=== PATIENT | male | born 1955 | race African-American/Black ===

== ENCOUNTER 2019-01-10 07:54 | Inpatient (IN) | payer MEDICARE, MEDICAID ==
[~2019-01-10] VITALS: Ht 177.8 cm; Wt 59.9 kg
[2019-01-10] VITALS (28 sets, daily range): BP systolic 73–161; BP diastolic 39–92
[~2019-01-10 07:54] MED LIST: ACETYLCYST200 MG/1 M ORAL; ARGINAID POWDE1 EACH PO; COLACE100 MG/10 PO; EPOGEN10000 UNIT SUBQ; FAMOTIDINE20 MG ORAL; HEPARIN SO5000 UNIT2 SUBQ; NEPHROVITE1 TAB ORAL; NOVOLIN R100 UNIT/1 SUBQ; PANTOPRAZOLE SO40 MG ORAL; PRO STAT SUGAR FREE PO; SIMETHICONE80 MG ORAL
[2019-01-10 08:46] LABS: HEMOGLOBIN 12.7 G/DL (14.2-18.0); MEAN CORPUSCULAR VOLUME 93 FL (80-99); PLATELET COUNT 78 K/UL (150-450); RED BLOOD COUNT 4.61 M/UL (4.70-6.10); RED CELL DISTRIBUTION WIDTH 20.1 % (11.6-14.8); WHITE BLOOD COUNT 6.1 K/UL (4.8-10.8)
[2019-01-10 08:56] LABS: INR 1.3 (0.9-1.1)
[2019-01-10 09:03] LABS: ANION GAP 10 mmol/L (5-15); BLOOD UREA NITROGEN 25 mg/dL (7-18); CALCIUM 8.7 MG/DL (8.5-10.1); CARBON DIOXIDE 22 MMOL/L (21-32); CHLORIDE 104 MMOL/L (98-107); CREATININE 3.5 MG/DL (0.55-1.30); POTASSIUM 4.4 MMOL/L (3.5-5.1); SODIUM 136 MMOL/L (136-145)
[2019-01-10] MEDS ORDERED: Lidocaine 1% Plain 30 ml INJ ONE (09:22)
[2019-01-10] MEDS ORDERED: Bacitracin Oint 15gm Tube TOPIC ONE (09:22)
[2019-01-10] MEDS ORDERED: Heparin 1000 units/ml 1ml Vial ONE (09:22)
[2019-01-10] MEDS ORDERED: Bacitracin 50000 Units Vial ONE (09:22)
[2019-01-10] MEDS ORDERED: Bupivacaine 0.5% Inj 30 ml vial INJ ONE (09:22)
[2019-01-10] MEDS ORDERED: Heparin 5000 units/ml inj ONE (09:38)
[2019-01-10] MEDS ORDERED: NS Irrig 1000ml IRRIG ONE (10:29)
[2019-01-10] MEDS ORDERED: LR 1000ml 1,000 ML IVLG SCH (10:39)
[2019-01-10] MEDS ORDERED: Sodium Chloride 10ml vial INJ ONE (10:39)
[2019-01-10] MEDS ORDERED: Lidocaine 1% MPF 10mg/ml 5ml ONE (10:39)
--- NOTE | 2019-01-10 10:39 | Anethesia Preoperative Eval ---
Anesthesia Pre-op PMH/ROS General Date of Evaluation: Jan 10, 2019 Time of Evaluation: 11:01 Anesthesiologist: Mary Lou ASA Score: ASA 4 Mallampati Score Class I : Soft palate, uvula, fauces, pillars visible Class II: Soft palate, uvula, fauces visible Class III: Soft palate, base of uvula visible Class IV: Only hard plate visible Mallampati Classification: Class III Surgeon: Mario Diagnosis: ESRD Surgical Procedure: A/V Fistula L Arm Anesthesia History: none Social History: smoking Family History: no anesthesia problems Allergies: Coded Allergies: No Known Allergies (Unverified , 01/09/19) Medications: see eMAR Patient NPO?: Yes Past Medical History Cardiovascular: Reports: HTN Pulmonary: Reports: COPD Gastrointestinal/Genitourinary: Reports: ESRD Endocrine: Reports: DM Hematology/Immune: Reports: anemia Anesthesia Pre-op Phys. Exam Physician Exam Last Vital Signs Date Time Temp Pulse Resp B/P (MAP) Pulse Ox O2 Delivery O2 Flow Rate FiO2 01/10/19 08:45 Room Air 01/10/19 08:40 97.0 71 20 141/75 97 Constitutional: NAD Neurologic: CN 2-12 intact Cardiovascular: RRR Respiratory: CTA Gastrointestinal: S/NT/ND Airway Exam Mallampati Score: Class III MO: limited ROM: limited Teeth: missing Dentures: upper, lower Anesthesia Pre-op A/P Labs Hematology Test 01/10/19 08:35 White Blood Count 6.1 K/UL (4.8-10.8) Red Blood Count 4.61 M/UL (4.70-6.10) L Hemoglobin 12.7 G/DL (14.2-18.0) L Hematocrit 43.0 % (42.0-52.0) Mean Corpuscular Volume 93 FL (80-99) Mean Corpuscular Hemoglobin 27.6 PG (27.0-31.0) Mean Corpuscular Hemoglobin Concent 29.6 G/DL (32.0-36.0) L Red Cell Distribution Width 20.1 % (11.6-14.8) H Platelet Count 78 K/UL (150-450) L Mean Platelet Volume 6.7 FL (6.5-10.1) Neutrophils (%) (Auto) % (45.0-75.0) Lymphocytes (%) (Auto) % (20.0-45.0) Monocytes (%) (Auto) % (1.0-10.0) Eosinophils (%) (Auto) % (0.0-3.0) Basophils (%) (Auto) % (0.0-2.0) Differential Total Cells Counted 100 Neutrophils % (Manual) 57 % (45-75) Lymphocytes % (Manual) 34 % (20-45) Monocytes % (Manual) 9 % (1-10) Eosinophils % (Manual) 0 % (0-3) Basophils % (Manual) 0 % (0-2) Band Neutrophils 0 % (0-8) Platelet Estimate Decreased L Platelet Morphology Normal Anisocytosis 2+ Coagulation Test 01/10/19 08:35 Prothrombin Time 13.8 SEC (9.30-11.50) H Prothromb Time International Ratio 1.3 (0.9-1.1) H Activated Partial Thromboplast Time 39 SEC (23-33) H Chemistry Test 01/10/19 08:35 Sodium Level 136 MMOL/L (136-145) Potassium Level 4.4 MMOL/L (3.5-5.1) Chloride Level 104 MMOL/L (98-107) Carbon Dioxide Level 22 MMOL/L (21-32) Anion Gap 10 mmol/L (5-15) Blood Urea Nitrogen 25 mg/dL (7-18) H Creatinine 3.5 MG/DL (0.55-1.30) H Estimat Glomerular Filtration Rate 21.5 mL/min (>60) Glucose Level 81 MG/DL (74-106) Calcium Level 8.7 MG/DL (8.5-10.1) Studies Pre-op Studies: EKG - A Flutter Risk Assessment & Plan Assessment: ASA 4 Plan: GA, SED Status Change Before Surgery: No Pre-Antibiotics Dru Gram Ancef IV Given Within 1 Hr of Incision: Yes Time Given: 11:16 Bora Barreto MD Jan 10, 2019 10:39
[2019-01-10] MEDS ORDERED: Propofol 200mg/20ml IV ONE (10:40)
[2019-01-10] MEDS ORDERED: Alfentanil 2ml Inj ONE (10:40)
[2019-01-10] MEDS ORDERED: Hydromorphone 0.5mg/0.5ml inj IVP PRN (10:45)
[2019-01-10] MEDS ORDERED: oxyCODONE HCL/Acetaminophen 5/325mg ORAL PRN (10:45)
[2019-01-10] MEDS ORDERED: HYDROcodone/Acetamin 7.5/325 tab ORAL PRN (10:45)
[2019-01-10] MEDS ORDERED: Metoclopramide 10mg/2ml Inj IVP PRN (10:45)
[2019-01-10] MEDS ORDERED: HYDROcodone/Acetamin 5/325 tab ORAL PRN (10:45)
[2019-01-10] MEDS ORDERED: Ketorolac 30mg Inj IV PRN ×2 (10:45)
[2019-01-10] MEDS ORDERED: Meperidine 50mg/ml Inj(FOR RIGORS ONLY) IVP PRN (10:45)
[2019-01-10] MEDS ORDERED: DiphenhydrAMINE 50mg/ml Inj IVP PRN (10:45)
[2019-01-10] MEDS ORDERED: Labetalol 5mg/ml 20ml vial IV PRN (10:45)
[2019-01-10] MEDS ORDERED: Midazolam 2mg/2ml Inj IVP PRN (10:45)
[2019-01-10] MEDS ORDERED: LORazepam Inj 2mg/ml 1ml IV PRN (10:45)
[2019-01-10] MEDS ORDERED: fentaNYL 100 mcg/2 mL IV PRN (10:45)
[2019-01-10] MEDS ORDERED: Atropine Sulfate 0.4mg/ml inj IVP PRN (10:45)
[2019-01-10] MEDS ORDERED: LR 1000ml ONE (11:00)
[2019-01-10] MEDS ORDERED: Glycopyrrolate 0.2mg/ml 1ml Vial ONE (11:23)
[2019-01-10] MEDS ORDERED: Atropine Sulfate 0.4mg/ml inj ONE ×6 (11:26→13:02)
[2019-01-10] MEDS ORDERED: EPINEPHrine 1mg/1ml Amp ONE (11:33)
--- NOTE | 2019-01-10 11:44 | Pre-Procedure Note/Attestation ---
Pre-Procedure Note/Attestation Complete Prior to Procedure Planned Procedure: left Procedure Narrative: dialysis shunt placement; possible dialysis catheter replacement Indications for Procedure Pre-Operative Diagnosis: ESRD Attestation I attest that I discussed the nature of the procedure; its benefits; risks and complications; and alternatives (and the risks and benefits of such alternatives ), prior to the procedure, with the patient (or the patient's legal technical support representative). I attest that, if there was a reasonable possibility of needing a blood transfusion, the patient (or the patient's legal technical support representative) was given the [facility] standardized written summary, pursuant to the Bimal Sravanthi Blood Safety Act ([place] Health and Safety Code # 1645, as amended). I attest that I re-evaluated the patient just prior to the surgery and that there has been no change in the patient's H&P, except as documented below: Hany Martin MD Jan 10, 2019 11:44
--- NOTE | 2019-01-10 12:02 | Immediate Post-Op Evaluation ---
Immediate Post-Op Evalulation Immediate Post-Op Evalulation Procedure: A/V Fistula L Arm Date of Evaluation: Jan 10, 2019 Time of Evaluation: 13:39 IV Fluids: 1000 NS Blood Products: 0 Estimated Blood Loss: 10 Urinary Output: 0 Blood Pressure Systolic: 220 Blood Pressure Diastolic: 100 Pulse Rate: 103 - AF Respiratory Rate: 12 - Mech Vent O2 Sat by Pulse Oximetry: 92 Temperature (Fahrenheit): 97 Pain Score (1-10): 1 Nausea: No Vomiting: No Complications Pt had cardiac arrest x3, 30 seconds of chest compressions with 100 mcg of epinephrine, now in ventricular rhythm in ICU Patient Status: patent, none Hydration Status: adequate Dru Gram Ancef IV Given Within 1 Hr of Incision: Yes Time Given: 11:16 Bora Barreto MD Jan 10, 2019 12:02
[2019-01-10] MEDS ORDERED: Flumazenil 0.1mg/ml 5ml Inj IV ONE (12:07)
--- NOTE | 2019-01-10 13:40 | NUR ---
CODE BLUE: See Code sheet which remains on paper. Patient arrived from the OR in full cardiac arrest. CPR was instituted immediately upon the arrival of the OR team and anesthesiologist. No meds were given at that time. Dopamine was hung but not started only ACLS/CPR was started. Patient returned to ROSC. Patient was closely monitored for VS and Respiratory rate. Patient was noted to have pupils that were fixed and dilated with no reaction to light. Patient was not responsive to pain or any other responses. Crash cart continues to be at bedside and patient continues to be closely monitored for this hemodynamically unstable patient. BG taken was 75.
--- NOTE | 2019-01-10 13:51 | Brief Operative Note ---
Immediate Post Operative Note Operative Note Pre-op Diagnosis: ESRD Procedure: left brachiobasilic AVF creation Post-op Diagnosis: same as pre-op Findings: consistent w/pre-op dx studies Surgeon: Yesenia Martin Anesthesiologist: Saniya Barreto Anesthesia: general Specimen: none Complications: yes - see anesthesia record Condition: unstable Fluids: see anesth. record Estimated Blood Loss: minimal Drains: none Implant(s) used?: No Hany Martin MD Jan 10, 2019 13:51
--- NOTE | 2019-01-10 14:15 | NUR ---
NURSE NOTES: Sister of the patient was phoned for the 2nd time. A message was left to phone the [facility] back regarding patient. Did not leave details. 1st phone call was made just shortly after code blue when patient arrived. Will endorse to pm RN to attempt to phone to sister once again,
--- NOTE | 2019-01-10 14:39 | NUR ---
RESPIRATORY NOTE: Arrived in basement floor as pt was being transferred to ICU. Code was in process during transport, but no code was called overhead. Compressions occurred as I provided oxygen to the pt. Pt arrived in ICU with RN's from surgery and from ICU and other RT's in the room at bedside until pt stabilized. Per MD, verbal order of vent settings are AC 12 500 100% +5. received pt intubated with ETT 8, placed 24cm at the lip. ETT secured via anchor fast when pt arrived in ICU. pt currently unstable at this time, HR 97 spo2 100% with low BP. Bilateral rhochi b/s upon auscultation. vent is plugged into the red outlet with ambu bag at bedside. will cont to monitor pt and to follow orders.
--- NOTE | 2019-01-10 15:26 | History and Physical ---
History of Present Illness General Date patient seen: Jan 10, 2019 Present Illness HPI 63 y/o male admitted to icu after having a new av fistula creation c/b cardiac arrest. Pt. has been on dialysis x 4 months with oliguria, seen by PMD Celeste Snyder yesterday at hd which he tolerated well. Currently pt. in icu on pressors, and vent, non responsive to painful stimuli off sedation. case d/w pmd, rn at bedside. Allergies: Coded Allergies: No Known Allergies (Unverified , 01/09/19) Medication History Scheduled Acetylcysteine* (Acetylcysteine*), 200 MG ORAL Q6, (Reported) Arginine/Ascorbate Sod/Ellie AC (Arginaid Powder), 1 EACH PO BID, (Reported) Docusate Sodium (Docusate Sodium), 5 ML PO BID, (Reported) Epoetin Beau (Epogen), 10,000 UNIT SUBQ 3XW, (Reported) Famotidine (Famotidine), 20 MG ORAL DAILY, (Reported) Heparin Sod (Porcine) (Heparin Sodium*), 5,000 UNITS SUBQ EVERY 12 HOURS, ( Reported) Insulin Regular, Human* (Novolin R*), 0 SUBQ .SLIDING SCALE, (Reported) Pantoprazole* (Pantoprazole*), 40 MG ORAL DAILY, (Reported) Vitamin B Cmplx/Vit C/Folic AC (Nephro-Ellie Tablet), 1 TAB ORAL DAILY, (Reported ) [Pro Stat Sugar Free ], 30 ML PO BID, (Reported) Scheduled PRN Simethicone* (Simethicone*), 80 MG ORAL BID PRN for GAS PAIN, (Reported) Patient History History Provided By: Medical Record Healthcare decision maker Resuscitation status Advanced Directive on File Past Medical/Surgical History Past Medical/Surgical History: (1) Anemia (2) DM2 (diabetes mellitus, type 2) (3) Respiratory failure (4) Cardiac arrest (5) ESRD (end stage renal disease) Social History Social History: (1) alf resident Review of Systems ROS Narrative pt comatose, unable to obtain Physical Exam General Appearance: WD/WN, lethargic, thin Lines, tubes and drains: peripheral, endotracheal tube, dialysis access HEENT: normocephalic, atraumatic Neck: non-tender, supple Cardiovascular/Chest: normal peripheral pulses Abdomen: soft, no organomegaly Genitourinary/Rectal: normal genital exam Extremities: no edema Skin Exam: normal pigmentation Neurologic: abnormal CN, motor weakness, sensory deficit, unresponsiveness Last 24 Hour Vital Signs Date Time Temp Pulse Resp B/P (MAP) Pulse Ox O2 Delivery O2 Flow Rate FiO2 01/10/19 15:00 96 12 100 01/10/19 14:25 91 12 100 01/10/19 13:24 103 12 92 01/10/19 08:45 Room Air 01/10/19 08:40 97.0 71 20 141/75 97 Room Air Laboratory Tests Test 01/10/19 08:35 White Blood Count 6.1 K/UL (4.8-10.8) Red Blood Count 4.61 M/UL (4.70-6.10) L Hemoglobin 12.7 G/DL (14.2-18.0) L Hematocrit 43.0 % (42.0-52.0) Mean Corpuscular Volume 93 FL (80-99) Mean Corpuscular Hemoglobin 27.6 PG (27.0-31.0) Mean Corpuscular Hemoglobin Concent 29.6 G/DL (32.0-36.0) L Red Cell Distribution Width 20.1 % (11.6-14.8) H Platelet Count 78 K/UL (150-450) L Mean Platelet Volume 6.7 FL (6.5-10.1) Neutrophils (%) (Auto) % (45.0-75.0) Lymphocytes (%) (Auto) % (20.0-45.0) Monocytes (%) (Auto) % (1.0-10.0) Eosinophils (%) (Auto) % (0.0-3.0) Basophils (%) (Auto) % (0.0-2.0) Differential Total Cells Counted 100 Neutrophils % (Manual) 57 % (45-75) Lymphocytes % (Manual) 34 % (20-45) Monocytes % (Manual) 9 % (1-10) Eosinophils % (Manual) 0 % (0-3) Basophils % (Manual) 0 % (0-2) Band Neutrophils 0 % (0-8) Platelet Estimate Decreased L Platelet Morphology Normal Anisocytosis 2+ Prothrombin Time 13.8 SEC (9.30-11.50) H Prothromb Time International Ratio 1.3 (0.9-1.1) H Activated Partial Thromboplast Time 39 SEC (23-33) H Sodium Level 136 MMOL/L (136-145) Potassium Level 4.4 MMOL/L (3.5-5.1) Chloride Level 104 MMOL/L (98-107) Carbon Dioxide Level 22 MMOL/L (21-32) Anion Gap 10 mmol/L (5-15) Blood Urea Nitrogen 25 mg/dL (7-18) H Creatinine 3.5 MG/DL (0.55-1.30) H Estimat Glomerular Filtration Rate 21.5 mL/min (>60) Glucose Level 81 MG/DL (74-106) Calcium Level 8.7 MG/DL (8.5-10.1) Height (Feet): 5 Height (Inches): 10.00 Weight (Pounds): 150 Medications Current Medications Medications (Trade) Dose Ordered Sig/Elder Route PRN Reason Start Time Stop Time Status Last Admin Dose Admin Acetaminophen/ Hydrocodone Bitart ([place] 5/325) 1 tab Q1H PRN ORAL Mild Pain (Pain Scale 1-3) 01/10/19 10:45 01/10/19 20:00 Acetaminophen/ Hydrocodone Bitart ([place] 7.5/325) 1 tab Q1H PRN ORAL Moderate Pain (Pain Scale 4-6) 01/10/19 10:45 01/10/19 20:00 Al Hydroxide/Mg Hydroxide (Mylanta) 15 ml Q1H PRN ORAL gi upset 01/10/19 10:45 01/10/19 20:00 Atropine Sulfate (Atropine 0.4mg/ ml) 0.5 mg Q5M PRN IVP HR<40 01/10/19 10:45 01/10/19 20:00 Diphenhydramine HCl (Benadryl) 25 mg Q15M PRN IVP Itching 01/10/19 10:45 01/10/19 20:00 Fentanyl Citrate (Sublimaze 100 mcg/2 mL) 25 mcg Q10M PRN IV Moderate Pain (Pain Scale 4-6) 01/10/19 10:45 01/10/19 20:00 Hydralazine HCl (Apresoline) 5 mg Q30M PRN IV SBP>160 / DBP>90 01/10/19 10:45 01/10/19 20:00 Hydromorphone HCl (Dilaudid) 0.5 mg Q15M PRN IVP Severe Pain (Pain Scale 7-10) 01/10/19 10:45 01/10/19 20:00 Ketorolac Tromethamine (Toradol 30mg) 15 mg Q1H PRN IV Moderate Breakthru Pain (5-7) 01/10/19 10:45 01/10/19 20:00 Ketorolac Tromethamine (Toradol 30mg) 30 mg Q1H PRN IV Severe Breakthru Pain (>7) 01/10/19 10:45 01/10/19 20:00 Labetalol HCl (Normodyne) 5 mg Q10M PRN IV SBP>160 / DBP>90 01/10/19 10:45 01/10/19 20:00 Lorazepam (Ativan 2mg/ml 1ml) 1 mg Q15M PRN IV For Anxiety 01/10/19 10:45 01/10/19 20:00 Meperidine HCl (Demerol) 25 mg Q5M PRN IVP Shivering.May repeat x 1 01/10/19 10:45 01/10/19 20:00 Metoclopramide HCl (Reglan) 10 mg Q1H PRN IVP Nausea & Vomiting 01/10/19 10:45 01/10/19 20:00 Midazolam HCl (Versed 2mg/2ml vial) 1 mg Q15M PRN IVP For Anxiety 01/10/19 10:45 01/10/19 20:00 Ondansetron HCl (Zofran) 4 mg Q1H PRN IVP Nausea & Vomiting 01/10/19 10:45 01/10/19 20:00 Oxycodone/ Acetaminophen (Percocet 5-325) 1 tab Q1H PRN ORAL Severe Pain (Pain Scale 7-10) 01/10/19 10:45 01/10/19 20:00 Assessment/Plan Problem List: (1) Cardiac arrest Assessment & Plan: - prognosis poor,will contact family, cont pressors, ivf, will get cards, pulmonary and neuro eval. -prognosis poor ICD Codes: I46.9 - Cardiac arrest, cause unspecified SNOMED: 267140328 (2) Anemia Assessment & Plan: - follow h.h -gi prophylaxis -epogen intermittent with hd ICD Codes: D64.9 - Anemia, unspecified SNOMED: 815997132 (3) Respiratory failure Assessment & Plan: - pulmonary eval pending -abg, cxr -keep on vent, minimize o2 flow ICD Codes: J96.90 - Respiratory failure, unspecified, unspecified whether with hypoxia or hypercapnia SNOMED: 619310916 (4) ESRD (end stage renal disease) Assessment & Plan: -adjust meds to lower crcl -next hd possibly tomorrow if hemodynamically stable -s/p new fistula, access care per vascular ICD Codes: N18.6 - End stage renal disease SNOMED: 92047327 (5) DM2 (diabetes mellitus, type 2) Assessment & Plan: - place on d5ns -follow bs q 6 with sliding scale ICD Codes: E11.9 - Type 2 diabetes mellitus without complications SNOMED: 67286456 Status: deteriorating Giovani Garza M.D. Jan 10, 2019 15:26
[2019-01-10] MEDS ORDERED: D5NS 1,000 ML IV SCH (15:30)
--- NOTE | 2019-01-10 15:30 | NUR ---
NURSE NOTES: Dr Garza is assessing patient bedside. Orders were given. Consults for Dr Faria and Dr Hidalgo were given for patient. Will await for MDs to arrive. Will continue to monitor.
--- NOTE | 2019-01-10 16:22 | Diagnostic Imaging Report ---
APPROVED REPORT CPT Code: G0365 Present Symptoms Comments: Vein mapping (Pre Op) Vein Measurements(cm) Cephalic Basilic Right LeftRight Left 0.25Upper Arm0.18Mid Upper Arm0.30 0.13Mid Upper ArmAntecubital Fossa0.28 VEIN MAPPING: The right and left cephalic and left basilic veins were imaged and measured to evaluate as a potential graft for dialysis access. BILATERAL UPPER EXTREMITY: Imaging reveals patency of the internal jugular, subclavian, axillary and brachial veins. Doppler indicates normal spontaneous flow within these venous segments, bilaterally. RIGHT UPPER EXTREMITY: The right subclavian, axillary, and brachial arteries Doppler waveforms are multiphasic. The radial and ulnar Doppler waveform analysis is biphasic with low amplitude flow. LEFT UPPER EXTREMITY: The left subclavian, axillary, brachial, radial and ulnar arteries Doppler waveforms are within normal limits.
--- NOTE | 2019-01-10 17:30 | NUR ---
NURSE NOTES: received this pt from [facility]. Received pt unresponsive, pupils fixed and dilated 5mm. pt cold touch and pale. pt intubated with ETT 8, placed 27 cm @ the lip. pt currently unstable at this time, HR 59, BP 78/37, RR 11, spo2 100%. Bilateral rhonchi. Abdomen distended, pt incontinent of stool. brown with green specks and red color, with large adult diaper on. New AVshunt LT arm, bright red blood, soaking through operative dressing. RT upper chest HD access with pigtail, RT IV 22G. will cont to monitor pt and to follow orders.
--- NOTE | 2019-01-10 17:36 | Pulmonolgy Critical Care Note ---
Critical Care - Asmt/Plan Assessment/Plan: Pulmonary CCM Consultation HPI Patient is a 63 y/o male admitted to icu after having a new av fistula creation c/b cardiac arrest x 2. Pt. has been on dialysis x 4 months with oliguria. Currently pt. in icu on pressors, and vent, non responsive to painful stimuli off sedation. [place] non responsive, fixed dilated pupils on mechanical ventilator, on PRN Dopamine, significant acidosis on ABG Allergies: No Known Allergies Medications Acetylcysteine* (Acetylcysteine*), 200 MG ORAL Q6, (Reported) Arginine/Ascorbate Sod/Ellie AC (Arginaid Powder), 1 EACH PO BID, (Reported) Docusate Sodium (Docusate Sodium), 5 ML PO BID, (Reported) Epoetin Beau (Epogen), 10,000 UNIT SUBQ 3XW, (Reported) Famotidine (Famotidine), 20 MG ORAL DAILY, (Reported) Heparin Sod (Porcine) (Heparin Sodium*), 5,000 UNITS SUBQ EVERY 12 HOURS, ( Reported) Insulin Regular, Human* (Novolin R*), 0 SUBQ .SLIDING SCALE, (Reported) Pantoprazole* (Pantoprazole*), 40 MG ORAL DAILY, (Reported) Vitamin B Cmplx/Vit C/Folic AC (Nephro-Ellie Tablet), 1 TAB ORAL DAILY, (Reported ) [Pro Stat Sugar Free ], 30 ML PO BID, (Reported) Scheduled PRN Simethicone* (Simethicone*), 80 MG ORAL BID PRN for GAS PAIN, (Reported) Past Medical/Surgical History: (1) Anemia (2) DM2 (diabetes mellitus, type 2) (3) Respiratory failure (4) Cardiac arrest (5) ESRD (end stage renal disease) ROS Narrative pt comatose, unable to obtain Physical Exam General Appearance: WD/WN, not responsive, thin Lines, tubes and drains: peripheral, endotracheal tube, dialysis access HEENT: normocephalic, atraumatic, pupils fixed and dilated Neck: non-tender, supple Cardiovascular/Chest: normal peripheral pulses Abdomen: soft, no organomegaly Genitourinary/Rectal: normal genital exam Extremities: no edema Skin Exam: normal pigmentation Neurologic: abnormal CN, no movement noted, no sizurest, unresponsiveness Vital Signs Noted Date Time Temp Pulse Resp B/P (MAP) Pulse Ox O2 Delivery O2 Flow Rate FiO2 01/10/19 15:00 96 12 100 01/10/19 14:25 91 12 100 01/10/19 13:24 103 12 92 01/10/19 08:45 Room Air 01/10/19 08:40 97.0 71 20 141/75 97 Room Air Laboratory Tests Test 01/10/19 08:35 White Blood Count 6.1 K/UL (4.8-10.8) Red Blood Count 4.61 M/UL (4.70-6.10) L Hemoglobin 12.7 G/DL (14.2-18.0) L Hematocrit 43.0 % (42.0-52.0) Mean Corpuscular Volume 93 FL (80-99) Mean Corpuscular Hemoglobin 27.6 PG (27.0-31.0) Mean Corpuscular Hemoglobin Concent 29.6 G/DL (32.0-36.0) L Red Cell Distribution Width 20.1 % (11.6-14.8) H Platelet Count 78 K/UL (150-450) L Mean Platelet Volume 6.7 FL (6.5-10.1) Neutrophils (%) (Auto) % (45.0-75.0) Lymphocytes (%) (Auto) % (20.0-45.0) Monocytes (%) (Auto) % (1.0-10.0) Eosinophils (%) (Auto) % (0.0-3.0) Basophils (%) (Auto) % (0.0-2.0) Differential Total Cells Counted 100 Neutrophils % (Manual) 57 % (45-75) Lymphocytes % (Manual) 34 % (20-45) Monocytes % (Manual) 9 % (1-10) Eosinophils % (Manual) 0 % (0-3) Basophils % (Manual) 0 % (0-2) Band Neutrophils 0 % (0-8) Platelet Estimate Decreased L Platelet Morphology Normal Anisocytosis 2+ Prothrombin Time 13.8 SEC (9.30-11.50) H Prothromb Time International Ratio 1.3 (0.9-1.1) H Activated Partial Thromboplast Time 39 SEC (23-33) H Sodium Level 136 MMOL/L (136-145) Potassium Level 4.4 MMOL/L (3.5-5.1) Chloride Level 104 MMOL/L (98-107) Carbon Dioxide Level 22 MMOL/L (21-32) Anion Gap 10 mmol/L (5-15) Blood Urea Nitrogen 25 mg/dL (7-18) H Creatinine 3.5 MG/DL (0.55-1.30) H Estimat Glomerular Filtration Rate 21.5 mL/min (>60) Glucose Level 81 MG/DL (74-106) Calcium Level 8.7 MG/DL (8.5-10.1) Height (Feet): 5 Height (Inches): 10.00 Weight (Pounds): 150 Medications Current Medications Medications (Trade) Dose Ordered Sig/Elder Route PRN Reason Start Time Stop Time Status Last Admin Dose Admin Acetaminophen/ Hydrocodone Bitart ([place] 5/325) 1 tab Q1H PRN ORAL Mild Pain (Pain Scale 1-3) 01/10/19 10:45 01/10/19 20:00 Acetaminophen/ Hydrocodone Bitart ([place] 7.5/325) 1 tab Q1H PRN ORAL Moderate Pain (Pain Scale 4-6) 01/10/19 10:45 01/10/19 20:00 Al Hydroxide/Mg Hydroxide (Mylanta) 15 ml Q1H PRN ORAL gi upset 01/10/19 10:45 01/10/19 20:00 Atropine Sulfate (Atropine 0.4mg/ ml) 0.5 mg Q5M PRN IVP HR<40 01/10/19 10:45 01/10/19 20:00 Diphenhydramine HCl (Benadryl) 25 mg Q15M PRN IVP Itching 01/10/19 10:45 01/10/19 20:00 Fentanyl Citrate (Sublimaze 100 mcg/2 mL) 25 mcg Q10M PRN IV Moderate Pain (Pain Scale 4-6) 01/10/19 10:45 01/10/19 20:00 Hydralazine HCl (Apresoline) 5 mg Q30M PRN IV SBP>160 / DBP>90 01/10/19 10:45 01/10/19 20:00 Hydromorphone HCl (Dilaudid) 0.5 mg Q15M PRN IVP Severe Pain (Pain Scale 7-10) 01/10/19 10:45 01/10/19 20:00 Ketorolac Tromethamine (Toradol 30mg) 15 mg Q1H PRN IV Moderate Breakthru Pain (5-7) 01/10/19 10:45 01/10/19 20:00 Ketorolac Tromethamine (Toradol 30mg) 30 mg Q1H PRN IV Severe Breakthru Pain (>7) 01/10/19 10:45 01/10/19 20:00 Labetalol HCl (Normodyne) 5 mg Q10M PRN IV SBP>160 / DBP>90 01/10/19 10:45 01/10/19 20:00 Lorazepam (Ativan 2mg/ml 1ml) 1 mg Q15M PRN IV For Anxiety 01/10/19 10:45 01/10/19 20:00 Meperidine HCl (Demerol) 25 mg Q5M PRN IVP Shivering.May repeat x 1 01/10/19 10:45 01/10/19 20:00 Metoclopramide HCl (Reglan) 10 mg Q1H PRN IVP Nausea & Vomiting 01/10/19 10:45 01/10/19 20:00 Midazolam HCl (Versed 2mg/2ml vial) 1 mg Q15M PRN IVP For Anxiety 01/10/19 10:45 01/10/19 20:00 Ondansetron HCl (Zofran) 4 mg Q1H PRN IVP Nausea & Vomiting 01/10/19 10:45 01/10/19 20:00 Oxycodone/ Acetaminophen (Percocet 5-325) 1 tab Q1H PRN ORAL Severe Pain (Pain Scale 7-10) 01/10/19 10:45 01/10/19 20:00 Assessment/Plan Problem List: (1) Cardiac arrest Assessment & Plan: - prognosis poor,will contact family, cont pressors, ivf -prognosis poor (2) Anemia - follow h.h -gi prophylaxis -epogen intermittent with hd - TFN PRN (3) Respiratory failure Assessment & Plan: - pulmonary eval pending -abg, cxr -keep on vent, minimize o2 flow - Increase RR, Increase Vt, Bicarbonate gtt (4) ESRD (end stage renal disease) (5) DM2 (diabetes mellitus, type 2) Insulin sliding scale Critical Care - Objective Last 24 Hour Vital Signs Date Time Temp Pulse Resp B/P (MAP) Pulse Ox O2 Delivery O2 Flow Rate FiO2 01/10/19 17:06 92 12 60 01/10/19 15:19 60 01/10/19 15:00 96 12 100 01/10/19 14:25 91 12 100 01/10/19 13:24 103 12 92 01/10/19 08:45 Room Air 01/10/19 08:40 97.0 71 20 141/75 97 Room Air Accucheck: 81 Critical Care - Subjective ROS Limited/Unobtainable: No FI02: 60 Vent Support Breath Rate: 12 Vent Support Mode: AC Vent Tidal Volume: 500 Sputum Amount: None PEEP: 5.0 PIP: 26 ET-Tube: 8.0 ET Position: 24 Yuriy Estrada MD Jan 10, 2019 17:36
--- NOTE | 2019-01-10 18:00 | NUR ---
NURSE NOTES: dopamine increased to 4mcg/kg/min BOP 80/33, HR 80, RR 11, 02SAT 100%
--- NOTE | 2019-01-10 18:12 | Cardiac Electrophysiology PN ---
Subjective Subjective EP consult dictated [id number] Objective Last 24 Hour Vital Signs Date Time Temp Pulse Resp B/P (MAP) Pulse Ox O2 Delivery O2 Flow Rate FiO2 01/10/19 17:06 92 12 60 01/10/19 15:19 60 01/10/19 15:00 96 12 100 01/10/19 14:25 91 12 100 01/10/19 13:24 103 12 92 01/10/19 08:45 Room Air 01/10/19 08:40 97.0 71 20 141/75 97 Room Air Laboratory Tests Test 01/10/19 08:35 01/10/19 15:09 White Blood Count 6.1 K/UL (4.8-10.8) Red Blood Count 4.61 M/UL (4.70-6.10) L Hemoglobin 12.7 G/DL (14.2-18.0) L Hematocrit 43.0 % (42.0-52.0) Mean Corpuscular Volume 93 FL (80-99) Mean Corpuscular Hemoglobin 27.6 PG (27.0-31.0) Mean Corpuscular Hemoglobin Concent 29.6 G/DL (32.0-36.0) L Red Cell Distribution Width 20.1 % (11.6-14.8) H Platelet Count 78 K/UL (150-450) L Mean Platelet Volume 6.7 FL (6.5-10.1) Neutrophils (%) (Auto) % (45.0-75.0) Lymphocytes (%) (Auto) % (20.0-45.0) Monocytes (%) (Auto) % (1.0-10.0) Eosinophils (%) (Auto) % (0.0-3.0) Basophils (%) (Auto) % (0.0-2.0) Differential Total Cells Counted 100 Neutrophils % (Manual) 57 % (45-75) Lymphocytes % (Manual) 34 % (20-45) Monocytes % (Manual) 9 % (1-10) Eosinophils % (Manual) 0 % (0-3) Basophils % (Manual) 0 % (0-2) Band Neutrophils 0 % (0-8) Platelet Estimate Decreased L Platelet Morphology Normal Anisocytosis 2+ Prothrombin Time 13.8 SEC (9.30-11.50) H Prothromb Time International Ratio 1.3 (0.9-1.1) H Activated Partial Thromboplast Time 39 SEC (23-33) H Sodium Level 136 MMOL/L (136-145) Potassium Level 4.4 MMOL/L (3.5-5.1) Chloride Level 104 MMOL/L (98-107) Carbon Dioxide Level 22 MMOL/L (21-32) Anion Gap 10 mmol/L (5-15) Blood Urea Nitrogen 25 mg/dL (7-18) H Creatinine 3.5 MG/DL (0.55-1.30) H Estimat Glomerular Filtration Rate 21.5 mL/min (>60) Glucose Level 81 MG/DL (74-106) Calcium Level 8.7 MG/DL (8.5-10.1) Arterial Blood pH 7.027 (7.350-7.450) Arterial Blood Partial Pressure CO2 46.4 mmHg (35.0-45.0) H Arterial Blood Partial Pressure O2 308.5 mmHg (75.0-100.0) H Arterial Blood HCO3 11.9 mmol/L (22.0-26.0) *L Arterial Blood Oxygen Saturation 99.5 % (95-100) Arterial Blood Base Excess -18.7 (-2-2) *L Wai Test Positive Guy Barbour MD Jan 10, 2019 18:12
--- NOTE | 2019-01-10 18:25 | Cardiac Electrophysiology PN ---
Subjective Subjective EP consult dictated [id number] manager operations, Dr Martin and Anesthesiologist Got Atropine 10 times. Arrested twice before and once after intubation. Preop atrial flutter now in SR Objective Last 24 Hour Vital Signs Date Time Temp Pulse Resp B/P (MAP) Pulse Ox O2 Delivery O2 Flow Rate FiO2 01/10/19 17:06 92 12 60 01/10/19 15:19 60 01/10/19 15:00 96 12 100 01/10/19 14:25 91 12 100 01/10/19 13:24 103 12 92 01/10/19 08:45 Room Air 01/10/19 08:40 97.0 71 20 141/75 97 Room Air Laboratory Tests Test 01/10/19 08:35 01/10/19 15:09 White Blood Count 6.1 K/UL (4.8-10.8) Red Blood Count 4.61 M/UL (4.70-6.10) L Hemoglobin 12.7 G/DL (14.2-18.0) L Hematocrit 43.0 % (42.0-52.0) Mean Corpuscular Volume 93 FL (80-99) Mean Corpuscular Hemoglobin 27.6 PG (27.0-31.0) Mean Corpuscular Hemoglobin Concent 29.6 G/DL (32.0-36.0) L Red Cell Distribution Width 20.1 % (11.6-14.8) H Platelet Count 78 K/UL (150-450) L Mean Platelet Volume 6.7 FL (6.5-10.1) Neutrophils (%) (Auto) % (45.0-75.0) Lymphocytes (%) (Auto) % (20.0-45.0) Monocytes (%) (Auto) % (1.0-10.0) Eosinophils (%) (Auto) % (0.0-3.0) Basophils (%) (Auto) % (0.0-2.0) Differential Total Cells Counted 100 Neutrophils % (Manual) 57 % (45-75) Lymphocytes % (Manual) 34 % (20-45) Monocytes % (Manual) 9 % (1-10) Eosinophils % (Manual) 0 % (0-3) Basophils % (Manual) 0 % (0-2) Band Neutrophils 0 % (0-8) Platelet Estimate Decreased L Platelet Morphology Normal Anisocytosis 2+ Prothrombin Time 13.8 SEC (9.30-11.50) H Prothromb Time International Ratio 1.3 (0.9-1.1) H Activated Partial Thromboplast Time 39 SEC (23-33) H Sodium Level 136 MMOL/L (136-145) Potassium Level 4.4 MMOL/L (3.5-5.1) Chloride Level 104 MMOL/L (98-107) Carbon Dioxide Level 22 MMOL/L (21-32) Anion Gap 10 mmol/L (5-15) Blood Urea Nitrogen 25 mg/dL (7-18) H Creatinine 3.5 MG/DL (0.55-1.30) H Estimat Glomerular Filtration Rate 21.5 mL/min (>60) Glucose Level 81 MG/DL (74-106) Calcium Level 8.7 MG/DL (8.5-10.1) Arterial Blood pH 7.027 (7.350-7.450) Arterial Blood Partial Pressure CO2 46.4 mmHg (35.0-45.0) H Arterial Blood Partial Pressure O2 308.5 mmHg (75.0-100.0) H Arterial Blood HCO3 11.9 mmol/L (22.0-26.0) *L Arterial Blood Oxygen Saturation 99.5 % (95-100) Arterial Blood Base Excess -18.7 (-2-2) *L Wai Test Positive Guy Barbour MD Jan 10, 2019 18:25
[2019-01-10] MEDS: Sodium Bicarbonate 150 ML in D5W 1000ml 1,000 ML IV SCH (19:04)
[2019-01-10] MEDS: DOPamine 400mg/250ml 250 ML IV SCH (19:05)
--- NOTE | 2019-01-10 19:30 | NUR ---
NURSE NOTES: Recvd.on a Vent.orally intubated.S/P Code, unresponsive,non-reactive to deep pain,Pupils Fixed Dilated,Flaccid.No Gag on suctioning.Dopa.drip inf.via Jace cath.blue port tit.to BPS>90.Scope SR with PVC's.Family contacted unable to reach.message left.New AVF (L) arm remain with some bleeding.dressing reinforced.Neg.thrill and bruit.ABG drawn.
[2019-01-10 20:00] LABS: HEMATOCRIT 44.6 % (42.0-52.0); HEMOGLOBIN 13.2 G/DL (14.2-18.0); MEAN CORPUSCULAR VOLUME 93 FL (80-99); PLATELET COUNT 75 K/UL (150-450); RED CELL DISTRIBUTION WIDTH 19.1 % (11.6-14.8)
[2019-01-10 20:02] LABS: WHITE BLOOD COUNT 24.6 K/UL (4.8-10.8)
[2019-01-10 20:29] LABS: ANION GAP 18 mmol/L (5-15); BLOOD UREA NITROGEN 28 mg/dL (7-18); CALCIUM 8.6 MG/DL (8.5-10.1); CARBON DIOXIDE 15 MMOL/L (21-32); CHLORIDE 105 MMOL/L (98-107); CREATININE 3.8 MG/DL (0.55-1.30); POTASSIUM 4.1 MMOL/L (3.5-5.1); SODIUM 138 MMOL/L (136-145)
[2019-01-10 20:35] LABS: ALANINE AMINOTRANSFERASE 147 U/L (12-78); ALBUMIN/GLOBULIN RATIO 0.3 (1.0-2.7); ALKALINE PHOSPHATASE 542 U/L (46-116); ASPARTATE AMINO TRANSFERASE 352 U/L (15-37); BILIRUBIN,TOTAL 0.5 MG/DL (0.2-1.0)
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
--- NOTE | 2019-01-10 21:00 | NUR ---
NURSE NOTES: Pos. chg.Remain hypothermic,Chuck zelaya on.See Abg results. here made aware no new order.Maintain on Bicarb.drip.
--- NOTE | 2019-01-10 22:00 | Operative Note - Dictated ---
DATE OF OPERATION: 01/10/2019 NOTE: INCOMPLETE DICTATION: PREOPERATIVE DIAGNOSES: 1. End-stage renal disease. 2. Need for permanent dialysis access. POSTOPERATIVE DIAGNOSES: 1. End-stage renal disease. 2. Need for permanent dialysis access. FINDINGS: Below. PROCEDURES: 1. Creation of a brachiobasilic dialysis arteriovenous fistula on the left upper extremity. 2. Dilation of left basilic vein. SURGEON: Hany Martin M.D. ANESTHESIA: General endotracheal. ANESTHESIOLOGIST: Dr. Barreto. INDICATION: The patient has been dialyzing through a tunneled catheter and is in need of permanent dialysis access. Preoperative vein mapping showed potentially adequate veins in the left upper extremity for an AV fistula creation. The patient was cleared medically for the procedure and confirmed just prior to the procedure during discussion with the drill press hand and primary physician. INTRAOPERATIVE FINDINGS: The basilic vein was adequate for creation of AV fistula was the brachial artery and the fistula was created as described below with good flow in the AV fistula during the procedure. The patient was hemodynamically unstable due to intermittent periods of bradycardia and hypotension at one point required chest compression. He was therefore transferred to the intensive care unit for further workup by Cardiology and. Hany Martin M.D. DR: KRISHNA JOB#: [id number] CC:
--- NOTE | 2019-01-10 22:15 | Operative Note - Dictated ---
DATE OF OPERATION: 01/10/2019 PREOPERATIVE DIAGNOSES: 1. End-stage renal disease. 2. Need for permanent dialysis access. POSTOPERATIVE DIAGNOSES: 1. End-stage renal disease. 2. Need for permanent dialysis access. FINDINGS: Below. PROCEDURES: 1. Creation of a brachiobasilic dialysis arteriovenous fistula in the left upper extremity. 2. Dilation of left basilic vein. SURGEON: Hany Martin M.D. ANESTHESIA: General endotracheal. ANESTHESIOLOGIST: Bora Barreto M.D. INDICATION: The patient has been dialyzing through a tunneled catheter and in need of a permanent dialysis access per his director of individual giving. A vein mapping showed adequate veins in the left upper extremity for AV fistula creation. The patient was re-confirmed to proceed and "cleared" medically for surgery by Dr. Garza just prior to the procedure. INTRAOPERATIVE FINDINGS: The basilic vein and the brachial artery were adequate and AV fistula created as described below with good flow in the fistula in the procedure. The patient had episodes of bradycardia and hypotension during the case and at one point, needed chest compressions and vasopressors to maintain his blood pressure, per the anesthesiologist. He was therefore transferred to the ICU postoperatively for further workup and the veneer clipper helper and primary physician were also notified. Of note, the patient was discussed with the director of individual giving and primary physician just prior to surgery to confirm clearance for the procedure and was cleared from medical standpoint to proceed with surgery today. PROCEDURE IN DETAIL: With the patient in supine position, after the left upper extremity was prepped and draped in usual sterile fashion, skin was infiltrated with local anesthetic -- the patient was later intubated by the anesthesiologist due to his hemodynamic instability as noted above. The incision was made over the brachial artery just distal to the antecubital crease in a transverse fashion, after which the artery was exposed and encircled with vessel loops proximally and distally and noted to be soft and adequate for the AV fistula anastomosis. The basilic vein at this level in the medial arm was also exposed and followed more distally where it was ligated and divided, and flushed with heparinized saline and dilated with serial dilators up to a 3.5 mm without significant resistance. The end of the vein was spatulated and after an arteriotomy was made in the brachial artery at this level, through which the vessel was flushed with heparinized saline proximally and distally, the end-to-side anastomosis into the vein was carried out with a continuous suture of 6-0 Prolene. Good hemostasis was obtained and the wound was irrigated with antibiotic solution and closed with interrupted sutures of 2-0 Vicryl for deep layer followed by skin neel for skin closure. Antibiotic ointment and dressings were placed and the patient transferred to the intensive care unit. At the conclusion of procedure, sponge, needle, and instrument counts were correct. ESTIMATED BLOOD LOSS: Minimal. SPECIMEN: None. DRAINS: None. Hany Martin M.D. DR: MICHELLE JOB#: [id number] CC: Tee Bourgeois M.D. ; FAX#: [phone] [facility]
[2019-01-11] VITALS (42 sets, daily range): BP systolic 95–165; BP diastolic 47–88
--- NOTE | 2019-01-11 00:10 | NUR ---
NURSE NOTES: V/S cont.to monitor.Dopa drip at same rate.Scope Rhythm unchanged.Remain on comatose state.Maintain on close Monitoring.Cont.Plan of care.
--- NOTE | 2019-01-11 02:00 | NUR ---
NURSE NOTES: Repositioned,suctioned.Status same.Krystle.vent.settings.
[2019-01-11 03:30] LABS: HEMATOCRIT 37.5 % (42.0-52.0); HEMOGLOBIN 11.7 G/DL (14.2-18.0); MEAN CORPUSCULAR VOLUME 91 FL (80-99); PLATELET COUNT 97 K/UL (150-450); RED BLOOD COUNT 4.14 M/UL (4.70-6.10); RED CELL DISTRIBUTION WIDTH 19.5 % (11.6-14.8); WHITE BLOOD COUNT 17.1 K/UL (4.8-10.8)
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
[2019-01-11 03:59] LABS: PHOSPHORUS 2.5 MG/DL (2.5-4.9)
--- NOTE | 2019-01-11 04:10 | NUR ---
NURSE NOTES: Blood drawn for cbc/mg/tsh etc.spec.to lab.Bathe,Kept clean and dry.Neuro status same.Cont.Plan of care.
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
--- NOTE | 2019-01-11 04:33 | NUR ---
Pt. remains on mechanical ventilation AC22/ VT600/ PEEP5/ FIO2.40. with SpO2 of 100%. Pt breathing irregularly and has no gag. No vent weaning ordered at this time due to hemodynamic instability and neuro status. Will continue to monitor.
[2019-01-11] MEDS: Sodium Bicarbonate 150 ML in D5W 1000ml 1,000 ML IV SCH ×2 (05:58→17:40)
--- NOTE | 2019-01-11 06:41 | NUR ---
RESPIRATORY NOTE: Received patient on ordered vent settings. Patient endotracheal tube is patent and secured. Suctioned patient PRN. Vent alarms are on and audible. Vent is plugged into red outlet. Will monitor patient progress.
--- NOTE | 2019-01-11 07:13 | NUR ---
HAND-OFF: Report given to VICKI WRIGHT.
--- NOTE | 2019-01-11 07:30 | NUR ---
NURSE NOTES: received report from Pato. pt remains unresponsive, pupils dilated 5mm. pt warm touch and ashen. pt intubated with ETT 8, placed 27 cm @ the lip. ETT 8, vent AC22, VT 600, PEEP 5, FI02 40%. HR 104, BP 135/365, RR 19, spo2 100%. Bilateral rhonchi. Abdomen distendedhypoactive bowel sounds, pt incontinent of stool. brown New AVshunt LT arm, bright red blood, soaking operative dressing. RT upper chest HD access with pigtail, RT IV 22G, dopamine @2mcg/kg/hr. will cont to monitor pt and to follow orders.
--- NOTE | 2019-01-11 08:26 | Critical Care Progress Note ---
Assessment/Plan Assessment/Plan s/p cardiac arrest acute encephalopathy acidemia respiratory failure, acute ESRD on HD acute OH, elevated troponin elevated wbc possible sepsis thrombocytopenia PLAN care noted IV antibiotics respiratory care Ventilatory support hyperventilate monitor acid base supportive care suction no wean for now oxygen therapy prognosis guarded remains critical medications/laboratory data/nursing notes/ICU care reviewed in detail note reviewed and edited care discussed with RN and RT ICU time spent 45 minutes Critical Care - Subjective Interval Events: overnight events reviewed care noted and discussed in ICU on vent ROS Limited/Unobtainable: Yes Condition: critical EKG Rhythm: Sinus Rhythm I&O: Intake and Output 01/10/19 01/11/19 18:59 06:59 Intake Total 1156.133 ml Output Total 0 ml Balance 1156.133 ml Intake Oral 0 ml IV Total 1156.133 ml Output Urine Total 0 ml # Bowel Movements 2 5 Critical Care - Objective ET-Tube: 8.0 ET Position: 24 Last 24 Hour Vital Signs Date Time Temp Pulse Resp B/P (MAP) Pulse Ox O2 Delivery O2 Flow Rate FiO2 01/11/19 06:30 104 22 137/67 (90) 100 01/11/19 06:00 103 22 139/55 (83) 100 01/11/19 05:30 102 22 135/65 (88) 100 01/11/19 05:25 103 24 40 60 01/11/19 05:00 103 22 143/68 (93) 100 01/11/19 04:30 103 22 136/68 (90) 100 01/11/19 04:00 104 01/11/19 04:00 Mechanical Ventilator 01/11/19 04:00 96.8 104 22 157/78 (104) 100 01/11/19 04:00 40 01/11/19 03:30 102 22 162/86 (111) 100 01/11/19 03:30 102 25 40 60 01/11/19 03:00 101 22 165/84 (111) 100 01/11/19 02:30 101 22 165/84 (111) 100 01/11/19 02:00 99 22 164/83 (110) 100 01/11/19 01:30 97 22 164/78 (106) 100 01/11/19 01:23 97 26 40 60 01/11/19 01:00 97 22 153/84 (107) 100 01/11/19 00:30 98 22 147/88 (107) 100 01/11/19 00:00 Mechanical Ventilator 01/11/19 00:00 94 01/11/19 00:00 95.4 94 22 155/80 (105) 100 01/11/19 00:00 40 01/10/19 23:30 93 22 145/91 (109) 100 01/10/19 23:05 92 23 40 60 01/10/19 23:00 92 22 148/79 (102) 100 01/10/19 22:30 92 22 152/86 (108) 100 01/10/19 22:00 91 22 153/84 (107) 100 01/10/19 21:45 91 22 152/86 (108) 100 01/10/19 21:30 90 22 143/85 (104) 100 01/10/19 21:15 91 22 145/88 (107) 100 01/10/19 21:00 90 22 150/80 (103) 100 01/10/19 20:45 89 22 155/82 (106) 100 01/10/19 20:36 88 22 50 60 01/10/19 20:30 88 22 144/81 (102) 100 01/10/19 20:15 88 22 138/88 (105) 100 01/10/19 20:00 88 22 134/90 (105) 100 01/10/19 20:00 50 01/10/19 20:00 Mechanical Ventilator 01/10/19 20:00 88 01/10/19 19:45 88 22 144/82 (102) 100 01/10/19 19:42 93 24 Room Air 60 01/10/19 19:30 88 22 130/83 (99) 100 01/10/19 19:15 90 22 144/92 (109) 100 01/10/19 19:05 79/41 01/10/19 19:00 95.2 92 22 161/82 (108) 100 01/10/19 18:58 93 24 60 60 01/10/19 18:30 60 12 92/55 (67) 100 01/10/19 18:00 59 12 73/44 (54) 100 01/10/19 17:30 60 12 78/39 (52) 100 01/10/19 17:06 92 12 60 01/10/19 17:00 93 12 132/62 (85) 100 01/10/19 16:30 83 12 86/44 (58) 100 01/10/19 16:00 60 01/10/19 16:00 66 01/10/19 16:00 95 12 104/58 (73) 100 01/10/19 15:30 96 12 146/74 (98) 100 01/10/19 15:19 60 01/10/19 15:00 96 12 143/74 (97) 100 01/10/19 15:00 96 12 100 01/10/19 14:30 97 12 144/70 (94) 100 01/10/19 14:25 91 12 100 01/10/19 14:00 90 12 141/75 (97) 99 01/10/19 13:30 97.0 91 12 125/61 (82) 100 01/10/19 13:24 103 12 92 01/10/19 13:12 Endotracheal Tube 01/10/19 13:12 Mechanical Ventilator 01/10/19 08:45 Room Air 01/10/19 08:40 97.0 71 20 141/75 97 Room Air Labs: Laboratory Tests Test 01/10/19 08:35 01/10/19 15:09 01/10/19 19:20 01/10/19 20:00 White Blood Count 6.1 K/UL (4.8-10.8) 24.6 K/UL (4.8-10.8) #*H Red Blood Count 4.61 M/UL (4.70-6.10) L 4.80 M/UL (4.70-6.10) Hemoglobin 12.7 G/DL (14.2-18.0) L 13.2 G/DL (14.2-18.0) L Hematocrit 43.0 % (42.0-52.0) 44.6 % (42.0-52.0) Mean Corpuscular Volume 93 FL (80-99) 93 FL (80-99) Mean Corpuscular Hemoglobin 27.6 PG (27.0-31.0) 27.6 PG (27.0-31.0) Mean Corpuscular Hemoglobin Concent 29.6 G/DL (32.0-36.0) L 29.6 G/DL (32.0-36.0) L Red Cell Distribution Width 20.1 % (11.6-14.8) H 19.1 % (11.6-14.8) H Platelet Count 78 K/UL (150-450) L 75 K/UL (150-450) L Mean Platelet Volume 6.7 FL (6.5-10.1) 6.1 FL (6.5-10.1) L Neutrophils (%) (Auto) % (45.0-75.0) % (45.0-75.0) Lymphocytes (%) (Auto) % (20.0-45.0) % (20.0-45.0) Monocytes (%) (Auto) % (1.0-10.0) % (1.0-10.0) Eosinophils (%) (Auto) % (0.0-3.0) % (0.0-3.0) Basophils (%) (Auto) % (0.0-2.0) % (0.0-2.0) Differential Total Cells Counted 100 100 Neutrophils % (Manual) 57 % (45-75) 83 % (45-75) H Lymphocytes % (Manual) 34 % (20-45) 2 % (20-45) L Monocytes % (Manual) 9 % (1-10) 4 % (1-10) Eosinophils % (Manual) 0 % (0-3) 0 % (0-3) Basophils % (Manual) 0 % (0-2) 0 % (0-2) Band Neutrophils 0 % (0-8) 10 % (0-8) H Platelet Estimate Decreased L Decreased L Platelet Morphology Normal Normal Anisocytosis 2+ 2+ Prothrombin Time 13.8 SEC (9.30-11.50) H Prothromb Time International Ratio 1.3 (0.9-1.1) H Activated Partial Thromboplast Time 39 SEC (23-33) H Sodium Level 136 MMOL/L (136-145) 138 MMOL/L (136-145) Potassium Level 4.4 MMOL/L (3.5-5.1) 4.1 MMOL/L (3.5-5.1) Chloride Level 104 MMOL/L (98-107) 105 MMOL/L (98-107) Carbon Dioxide Level 22 MMOL/L (21-32) 15 MMOL/L (21-32) L Anion Gap 10 mmol/L (5-15) 18 mmol/L (5-15) H Blood Urea Nitrogen 25 mg/dL (7-18) H 28 mg/dL (7-18) H Creatinine 3.5 MG/DL (0.55-1.30) H 3.8 MG/DL (0.55-1.30) H Estimat Glomerular Filtration Rate 21.5 mL/min (>60) 19.5 mL/min (>60) Glucose Level 81 MG/DL (74-106) 89 MG/DL (74-106) Calcium Level 8.7 MG/DL (8.5-10.1) 8.6 MG/DL (8.5-10.1) Arterial Blood pH 7.027 (7.350-7.450) 7.349 (7.350-7.450) Arterial Blood Partial Pressure CO2 46.4 mmHg (35.0-45.0) H 23.6 mmHg (35.0-45.0) *L Arterial Blood Partial Pressure O2 308.5 mmHg (75.0-100.0) H 149.7 mmHg (75.0-100.0) H Arterial Blood HCO3 11.9 mmol/L (22.0-26.0) *L 12.7 mmol/L (22.0-26.0) *L Arterial Blood Oxygen Saturation 99.5 % (95-100) 99.2 % (95-100) Arterial Blood Base Excess -18.7 (-2-2) *L -11 (-2-2) *L Wai Test Positive Positive Myelocytes % 1 % (0-0) H Nucleated Red Blood Cells 1 /100 WBC Hypochromasia 1+ Total Bilirubin 0.5 MG/DL (0.2-1.0) Aspartate Amino Transf (AST/SGOT) 352 U/L (15-37) H Alanine Aminotransferase (ALT/SGPT) 147 U/L (12-78) H Alkaline Phosphatase 542 U/L (46-116) H Troponin I 3.099 ng/mL (0.000-0.056) Total Protein 8.3 G/DL (6.4-8.2) H Albumin 2.0 G/DL (3.4-5.0) L Globulin 6.3 g/dL Albumin/Globulin Ratio 0.3 (1.0-2.7) L Test 01/11/19 02:50 White Blood Count 17.1 K/UL (4.8-10.8) H Red Blood Count 4.14 M/UL (4.70-6.10) L Hemoglobin 11.7 G/DL (14.2-18.0) L Hematocrit 37.5 % (42.0-52.0) L Mean Corpuscular Volume 91 FL (80-99) Mean Corpuscular Hemoglobin 28.3 PG (27.0-31.0) Mean Corpuscular Hemoglobin Concent 31.2 G/DL (32.0-36.0) L Red Cell Distribution Width 19.5 % (11.6-14.8) H Platelet Count 97 K/UL (150-450) L Mean Platelet Volume 6.4 FL (6.5-10.1) L Neutrophils (%) (Auto) % (45.0-75.0) Lymphocytes (%) (Auto) % (20.0-45.0) Monocytes (%) (Auto) % (1.0-10.0) Eosinophils (%) (Auto) % (0.0-3.0) Basophils (%) (Auto) % (0.0-2.0) Differential Total Cells Counted 100 Neutrophils % (Manual) 91 % (45-75) H Lymphocytes % (Manual) 5 % (20-45) L Monocytes % (Manual) 4 % (1-10) Eosinophils % (Manual) 0 % (0-3) Basophils % (Manual) 0 % (0-2) Band Neutrophils 0 % (0-8) Platelet Estimate Decreased L Platelet Morphology Normal Anisocytosis 1+ Phosphorus Level 2.5 MG/DL (2.5-4.9) Magnesium Level 1.7 MG/DL (1.8-2.4) L Troponin I 5.475 ng/mL (0.000-0.056) Thyroid Stimulating Hormone (TSH) 6.547 uiU/mL (0.358-3.740) Objective: WDWN NAD orally intubated poor LOC reduced breath sounds bilaterally without rhonchi or wheeze [id number] without MRG NABS nontender no HSM; no distention no CCE 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
--- NOTE | 2019-01-11 08:27 | Nephrology Progress Note ---
Assessment/Plan Problem List: (1) Cardiac arrest Assessment: - prognosis poor,will contact family, -cont pressors -pulmonary and cards eval appreciated -prognosis poor (2) Anemia Assessment: - follow h.h -gi prophylaxis -epogen intermittent with hd (3) Respiratory failure Assessment: -pulmonary f/u -cxr reviewed -uf with hd -cont current vent settings (4) ESRD (end stage renal disease) Assessment: -adjust meds to lower crcl -plan hd today if stable -s/p new fistula, access care per vascular (5) DM2 (diabetes mellitus, type 2) Assessment: - place on d5ns -follow bs q 6 with sliding scale Subjective ROS Limited/Unobtainable: Yes Subjective pt. seen and examined in icu. cards and pulmonary eval noted d/w rn on dopa for bp control on vent 40%fio2, non responsive. attempted to contact family last hd on mon. Objective Objective Last 24 Hour Vital Signs Date Time Temp Pulse Resp B/P (MAP) Pulse Ox O2 Delivery O2 Flow Rate FiO2 01/11/19 06:30 104 22 137/67 (90) 100 01/11/19 06:00 103 22 139/55 (83) 100 01/11/19 05:30 102 22 135/65 (88) 100 01/11/19 05:25 103 24 40 60 01/11/19 05:00 103 22 143/68 (93) 100 01/11/19 04:30 103 22 136/68 (90) 100 01/11/19 04:00 104 01/11/19 04:00 Mechanical Ventilator 01/11/19 04:00 96.8 104 22 157/78 (104) 100 01/11/19 04:00 40 01/11/19 03:30 102 22 162/86 (111) 100 01/11/19 03:30 102 25 40 60 01/11/19 03:00 101 22 165/84 (111) 100 01/11/19 02:30 101 22 165/84 (111) 100 01/11/19 02:00 99 22 164/83 (110) 100 01/11/19 01:30 97 22 164/78 (106) 100 01/11/19 01:23 97 26 40 60 01/11/19 01:00 97 22 153/84 (107) 100 01/11/19 00:30 98 22 147/88 (107) 100 01/11/19 00:00 Mechanical Ventilator 01/11/19 00:00 94 01/11/19 00:00 95.4 94 22 155/80 (105) 100 01/11/19 00:00 40 01/10/19 23:30 93 22 145/91 (109) 100 01/10/19 23:05 92 23 40 60 01/10/19 23:00 92 22 148/79 (102) 100 01/10/19 22:30 92 22 152/86 (108) 100 01/10/19 22:00 91 22 153/84 (107) 100 01/10/19 21:45 91 22 152/86 (108) 100 01/10/19 21:30 90 22 143/85 (104) 100 01/10/19 21:15 91 22 145/88 (107) 100 01/10/19 21:00 90 22 150/80 (103) 100 01/10/19 20:45 89 22 155/82 (106) 100 01/10/19 20:36 88 22 50 60 01/10/19 20:30 88 22 144/81 (102) 100 01/10/19 20:15 88 22 138/88 (105) 100 01/10/19 20:00 88 22 134/90 (105) 100 01/10/19 20:00 50 01/10/19 20:00 Mechanical Ventilator 01/10/19 20:00 88 01/10/19 19:45 88 22 144/82 (102) 100 01/10/19 19:42 93 24 Room Air 60 01/10/19 19:30 88 22 130/83 (99) 100 01/10/19 19:15 90 22 144/92 (109) 100 01/10/19 19:05 79/41 01/10/19 19:00 95.2 92 22 161/82 (108) 100 01/10/19 18:58 93 24 60 60 01/10/19 18:30 60 12 92/55 (67) 100 01/10/19 18:00 59 12 73/44 (54) 100 01/10/19 17:30 60 12 78/39 (52) 100 01/10/19 17:06 92 12 60 01/10/19 17:00 93 12 132/62 (85) 100 01/10/19 16:30 83 12 86/44 (58) 100 01/10/19 16:00 60 01/10/19 16:00 66 01/10/19 16:00 95 12 104/58 (73) 100 01/10/19 15:30 96 12 146/74 (98) 100 01/10/19 15:19 60 01/10/19 15:00 96 12 143/74 (97) 100 01/10/19 15:00 96 12 100 01/10/19 14:30 97 12 144/70 (94) 100 01/10/19 14:25 91 12 100 01/10/19 14:00 90 12 141/75 (97) 99 01/10/19 13:30 97.0 91 12 125/61 (82) 100 01/10/19 13:24 103 12 92 01/10/19 13:12 Endotracheal Tube 01/10/19 13:12 Mechanical Ventilator 01/10/19 08:45 Room Air 01/10/19 08:40 97.0 71 20 141/75 97 Room Air Intake and Output 01/10/19 01/11/19 18:59 06:59 Intake Total 1156.133 ml Output Total 0 ml Balance 1156.133 ml Intake Oral 0 ml IV Total 1156.133 ml Output Urine Total 0 ml # Bowel Movements 2 5 Laboratory Tests 01/10/19 08:35: White Blood Count 6.1, Red Blood Count 4.61L, Hemoglobin 12.7L, Hematocrit 43.0 , Mean Corpuscular Volume 93, Mean Corpuscular Hemoglobin 27.6, Mean Corpuscular Hemoglobin Concent 29.6L, Red Cell Distribution Width 20.1H, Platelet Count 78L, Mean Platelet Volume 6.7, Neutrophils (%) (Auto) , Lymphocytes (%) (Auto) , Monocytes (%) (Auto) , Eosinophils (%) (Auto) , Basophils (%) (Auto) , Differential Total Cells Counted 100, Neutrophils % ( Manual) 57, Lymphocytes % (Manual) 34, Monocytes % (Manual) 9, Eosinophils % ( Manual) 0, Basophils % (Manual) 0, Band Neutrophils 0, Platelet Estimate DecreasedL, Platelet Morphology Normal, Anisocytosis 2+, Prothrombin Time 13.8H , Prothromb Time International Ratio 1.3H, Activated Partial Thromboplast Time 39H, Sodium Level 136, Potassium Level 4.4, Chloride Level 104, Carbon Dioxide Level 22, Anion Gap 10, Blood Urea Nitrogen 25H, Creatinine 3.5H, Estimat Glomerular Filtration Rate 21.5, Glucose Level 81, Calcium Level 8.7 01/10/19 15:09: Arterial Blood pH 7.027*L, Arterial Blood Partial Pressure CO2 46.4H, Arterial Blood Partial Pressure O2 308.5H, Arterial Blood HCO3 11.9*L, Arterial Blood Oxygen Saturation 99.5, Arterial Blood Base Excess -18.7*L, Wai Test Positive 01/10/19 19:20: White Blood Count 24.6#*H, Red Blood Count 4.80, Hemoglobin 13.2L, Hematocrit 44.6, Mean Corpuscular Volume 93, Mean Corpuscular Hemoglobin 27.6, Mean Corpuscular Hemoglobin Concent 29.6L, Red Cell Distribution Width 19.1H, Platelet Count 75L, Mean Platelet Volume 6.1L, Neutrophils (%) (Auto) , Lymphocytes (%) (Auto) , Monocytes (%) (Auto) , Eosinophils (%) (Auto) , Basophils (%) (Auto) , Differential Total Cells Counted 100, Neutrophils % ( Manual) 83H, Lymphocytes % (Manual) 2L, Monocytes % (Manual) 4, Eosinophils % ( Manual) 0, Basophils % (Manual) 0, Band Neutrophils 10H, Platelet Estimate DecreasedL, Platelet Morphology Normal, Anisocytosis 2+, Sodium Level 138, Potassium Level 4.1, Chloride Level 105, Carbon Dioxide Level 15L, Anion Gap 18H , Blood Urea Nitrogen 28H, Creatinine 3.8H, Estimat Glomerular Filtration Rate 19.5, Glucose Level 89, Calcium Level 8.6, Myelocytes % 1H, Nucleated Red Blood Cells 1, Hypochromasia 1+, Total Bilirubin 0.5, Aspartate Amino Transf (AST/SGOT ) 352H, Alanine Aminotransferase (ALT/SGPT) 147H, Alkaline Phosphatase 542H, Troponin I 3.099H, Total Protein 8.3H, Albumin 2.0L, Globulin 6.3, Albumin/ Globulin Ratio 0.3L 01/10/19 20:00: Arterial Blood pH 7.349L, Arterial Blood Partial Pressure CO2 23.6*L, Arterial Blood Partial Pressure O2 149.7H, Arterial Blood HCO3 12.7*L, Arterial Blood Oxygen Saturation 99.2, Arterial Blood Base Excess -11*L, Wai Test Positive 01/11/19 02:50: White Blood Count 17.1H, Red Blood Count 4.14L, Hemoglobin 11.7L, Hematocrit 37.5L, Mean Corpuscular Volume 91, Mean Corpuscular Hemoglobin 28.3, Mean Corpuscular Hemoglobin Concent 31.2L, Red Cell Distribution Width 19.5H, Platelet Count 97L, Mean Platelet Volume 6.4L, Neutrophils (%) (Auto) , Lymphocytes (%) (Auto) , Monocytes (%) (Auto) , Eosinophils (%) (Auto) , Basophils (%) (Auto) , Differential Total Cells Counted 100, Neutrophils % ( Manual) 91H, Lymphocytes % (Manual) 5L, Monocytes % (Manual) 4, Eosinophils % ( Manual) 0, Basophils % (Manual) 0, Band Neutrophils 0, Platelet Estimate DecreasedL, Platelet Morphology Normal, Anisocytosis 1+, Phosphorus Level 2.5, Magnesium Level 1.7L, Troponin I 5.475H, Thyroid Stimulating Hormone (TSH) 6.547H Height (Feet): 5 Height (Inches): 10.00 Weight (Pounds): 130 General Appearance: no apparent distress, lethargic, thin Neck: non-tender, supple Cardiovascular: normal peripheral pulses, normal rate Respiratory/Chest: decreased breath sounds, rhonchi - bilaterally Abdomen: normal bowel sounds, soft Extremities: non-tender Neurologic: no Babinski, 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 Jan 11, 2019 08:27
--- NOTE | 2019-01-11 08:43 | NUR ---
NURSE NOTES: MD Garza here, was updated on pt mg 1.7. Received order to placeNGT and start nepro @20ml goal.
--- NOTE | 2019-01-11 09:29 | NUR ---
NURSE NOTES: 2-D ECHO UNDERWAY FOR PT. NO DISTRESS NOTED.
--- NOTE | 2019-01-11 09:29 | NUR ---
NURSE NOTES: WILL ADMINISTER 0900 PROTONIX POST 2-D ECHO.
--- NOTE | 2019-01-11 09:36 | NUR ---
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 LEFT ARM AV PLACEMENT SI:ESRD . LEFT ARM AV PLACEMENT VS: BP: 141/75, P 71, T 97.0, RR 20, SpO2 97 WBC 24.6, RBC 4.61, Hgb 12.7, BUN 25, CR 3.5 IS:SODIUM BICARBONATE 1,150ml IV DOPAMINE 250ml IV PROTONIX 40mg IVP VANCOMYCIN 275ml IVPB SYNTHROID 25mcg ADMITTED TO ICU DC PLAN: BACK TO [facility]
[2019-01-11] MEDS: Pantoprazole Inj IVP SCH (09:58)
[2019-01-11] MEDS ORDERED: Vancomycin 1 GM in D5W 275 ML IVPB SCH (10:00)
--- NOTE | 2019-01-11 11:31 | NUR ---
Social Service Note Patient is orally intubated and non responsive. Patient s/p code blue. Patient is a resident of [place] [facility] [phone]. 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 Per SNF patient was recently decannulated. SW left a message for patient's sister Pinky Cason [phone], Awaiting return call.
--- NOTE | 2019-01-11 11:39 | 48 Hour Post Anesthesia Eval ---
Post Anesthesia Evaluation Procedure: A/V Fistula L Arm Date of Evaluation: Jan 11, 2019 Time of Evaluation: 06:50 Blood Pressure Systolic: 137 0: 67 Pulse Rate: 99 Respiratory Rate: 23 O2 Sat by Pulse Oximetry: 100 Airway: other - intubated on mechanical ventilator Nausea: No Vomiting: No Pain Intensity: 0 Hydration Status: adequate Mental Status/LOC: other - unresponsive to verbal or tactile stimulit Post-Anesthesia Complications: critically ill patient, s/p cardiac arrest X3; stabilized and transfered to ICU. On pressors, intubated on mechanical ventilation and unresponsive. Follow-up care needed: N/A - further care as per ICU team Claire Bui MD Jan 11, 2019 11:39
--- NOTE | 2019-01-11 11:59 | NUR ---
RD ASSESSMENT & RECOMMENDATIONS SEE CARE ACTIVITY FOR COMPLETE ASSESSMENT DAILY ESTIMATED NEEDS: Needs based on Critical care, ESRD on HD/ 64kg 22-28 kcals/kg [id number] total kcals 1.2-2.0 g protein/kg 76-128 g total protein per MD mL/kg total fluid mLs NUTRITION DIAGNOSIS: Swallowing difficulty R/T respiratory status as evidenced by s/p cardiac arrest and respiratory failure, orally intubated, w/ an order for NGT feeding. CURRENT TF:Nepro @ 20ml/hr x 22 hrs -> just ordered PO DIET RECOMMENDATIONS: NEONATAL SURGEON eval post extubation ENTERAL NUTRITION RECOMMENDATIONS: Nepro @ 45ml/hr x 22 hrs to provide 990ml, 1782kcal, 80g prot, 719ml free water WITH HEMODYNAMIC STABILITY: * Rec to increase goal rate to 45ml/hr x 22 hrs * Increase 5ml q 4-6 hrs as tolerated to goal rate * Hold 1 hr before and after Synthroid med. * HOB over 30 degrees/ water flush per MD -- WITHOUT HEMODYNAMIC STABILITY, rec trophic feeding of Nepro @ 10ml/hr x 22 hrs ADDITIONAL RECOMMENDATIONS: * Per SNF: pt's ht= 5'7", wt (01/09/19)=140lbs * Obtain dry wt post HD on calibrated bedscale * Monitor hemodynamic stability * Monitor lytes, replete as needed (low mag) * Josh 1pkt BID for skin integrity -> consider WC specialist eval for rt heel and sacral area (wound photos)
--- NOTE | 2019-01-11 13:40 | NUR ---
NURSE NOTES: OGT placed, KUB to confirm placement.
--- NOTE | 2019-01-11 13:55 | Diagnostic Imaging Report ---
Indication: Post intubation Technique: One view of the chest Comparison: none Findings: Defibrillator paddles overlie the chest. There is an endotracheal tube, tip projecting 1 cm above the jorge luis. There is a right jugular tunneled dialysis catheter in good position. There is a large right pleural effusion. The left costophrenic angle is cut off the exam. There is borderline interstitial congestion. The heart is enlarged Impression: Slightly low position of endotracheal tube, 1 cm above the jorge luis. Large right pleural effusion Satisfactory position of dialysis catheter Borderline interstitial congestion
--- NOTE | 2019-01-11 13:58 | NUR ---
P.T Note: Order received to continue P.T services. Pt seen and reevaluated. POC initiated. Please refer to P.T re-evaluation for current functional status. Pt is alert, oriented to self and place but not to time. Pt follows commands appropriately. Pt denied c/o pain but reports generalized weakness and fatigue. Pt presented poor activity tolerance and currently require MAX A X 1 for turning/rolling to both sides of bed. Pt able to sit at the edge of the bed with MOD support needed to maintain upright sitting: only tolerated 5 mins of sitting. Pt too weak to stand and transfer at this time. Continued skilled P.T service is warranted to improve his strength , endurance and balance to improve and increase is functional mobility independence and activity tolerance. Recommend SNF for continued rehab at [place]. Addendum: 01/11/19 at 1418 by ROSY MOTA PT P.T NOTE: CORRECTION PLEASE DISREGARD THE ABOVE P.T NOTES. WRONG ENTRY!!!
--- NOTE | 2019-01-11 14:00 | NUR ---
NURSE NOTES: called [facility] regarding central line placement for H.D access/ vasoactive meds.
--- NOTE | 2019-01-11 14:06 | Diagnostic Imaging Report ---
Indication: Post nasogastric tube placement Technique: Supine view of the upper abdomen Comparison: none Findings: There is a nasogastric tube in place, tip projecting at the level gastric fundus. There is a gastrostomy in place, relation to the gastric lumen uncertain. The bowel gas pattern is unremarkable. Impression: Apparent satisfactory position of nasogastric tube Gastrostomy tube in place, relation to the gastric lumen uncertain without contrast injection
--- NOTE | 2019-01-11 14:53 | Cardiac Electrophysiology PN ---
Subjective Subjective Remained in SR with no further bradycardia on Dopamine 2 mcg.On the Vent. Objective Last 24 Hour Vital Signs Date Time Temp Pulse Resp B/P (MAP) Pulse Ox O2 Delivery O2 Flow Rate FiO2 01/11/19 13:20 106 23 40 60 01/11/19 12:00 40 01/11/19 12:00 Mechanical Ventilator 01/11/19 12:00 104 01/11/19 12:00 100.0 107 24 121/62 (81) 01/11/19 11:39 99 23 100 01/11/19 11:30 107 25 116/61 (79) 100 01/11/19 11:00 107 25 117/60 (79) 100 01/11/19 10:36 97 25 40 60 01/11/19 10:30 106 26 137/67 (90) 100 01/11/19 10:00 106 23 134/62 (86) 100 01/11/19 09:30 108 22 136/59 (84) 100 01/11/19 09:00 107 20 137/58 (84) 100 01/11/19 08:54 95 26 40 60 01/11/19 08:30 106 17 135/67 (89) 100 01/11/19 08:00 99.8 105 17 137/59 (85) 100 01/11/19 08:00 40 01/11/19 08:00 104 01/11/19 08:00 Mechanical Ventilator 01/11/19 07:30 104 19 135/65 (88) 100 01/11/19 07:00 103 21 136/58 (84) 100 01/11/19 06:41 99 23 40 60 01/11/19 06:30 104 22 137/67 (90) 100 01/11/19 06:00 103 22 139/55 (83) 100 01/11/19 05:30 102 22 135/65 (88) 100 01/11/19 05:25 103 24 40 60 01/11/19 05:00 103 22 143/68 (93) 100 01/11/19 04:30 103 22 136/68 (90) 100 01/11/19 04:00 104 01/11/19 04:00 Mechanical Ventilator 01/11/19 04:00 96.8 104 22 157/78 (104) 100 01/11/19 04:00 40 01/11/19 03:30 102 22 162/86 (111) 100 01/11/19 03:30 102 25 40 60 01/11/19 03:00 101 22 165/84 (111) 100 01/11/19 02:30 101 22 165/84 (111) 100 01/11/19 02:00 99 22 164/83 (110) 100 01/11/19 01:30 97 22 164/78 (106) 100 01/11/19 01:23 97 26 40 60 01/11/19 01:00 97 22 153/84 (107) 100 01/11/19 00:30 98 22 147/88 (107) 100 01/11/19 00:00 Mechanical Ventilator 01/11/19 00:00 94 01/11/19 00:00 95.4 94 22 155/80 (105) 100 01/11/19 00:00 40 01/10/19 23:30 93 22 145/91 (109) 100 01/10/19 23:05 92 23 40 60 01/10/19 23:00 92 22 148/79 (102) 100 01/10/19 22:30 92 22 152/86 (108) 100 01/10/19 22:00 91 22 153/84 (107) 100 01/10/19 21:45 91 22 152/86 (108) 100 01/10/19 21:30 90 22 143/85 (104) 100 01/10/19 21:15 91 22 145/88 (107) 100 01/10/19 21:00 90 22 150/80 (103) 100 01/10/19 20:45 89 22 155/82 (106) 100 01/10/19 20:36 88 22 50 60 01/10/19 20:30 88 22 144/81 (102) 100 01/10/19 20:15 88 22 138/88 (105) 100 01/10/19 20:00 88 22 134/90 (105) 100 01/10/19 20:00 50 01/10/19 20:00 Mechanical Ventilator 01/10/19 20:00 88 01/10/19 19:45 88 22 144/82 (102) 100 01/10/19 19:42 93 24 Room Air 60 01/10/19 19:30 88 22 130/83 (99) 100 01/10/19 19:15 90 22 144/92 (109) 100 01/10/19 19:05 79/41 01/10/19 19:00 95.2 92 22 161/82 (108) 100 01/10/19 18:58 93 24 60 60 01/10/19 18:30 60 12 92/55 (67) 100 01/10/19 18:00 59 12 73/44 (54) 100 01/10/19 17:30 60 12 78/39 (52) 100 01/10/19 17:06 92 12 60 01/10/19 17:00 93 12 132/62 (85) 100 01/10/19 16:30 83 12 86/44 (58) 100 01/10/19 16:00 60 01/10/19 16:00 66 01/10/19 16:00 95 12 104/58 (73) 100 01/10/19 15:30 96 12 146/74 (98) 100 01/10/19 15:19 60 01/10/19 15:00 96 12 143/74 (97) 100 01/10/19 15:00 96 12 100 Intake and Output 01/10/19 01/11/19 19:00 07:00 Intake Total 1261.236 ml Output Total 0 ml Balance 1261.236 ml Intake Oral 0 ml IV Total 1261.236 ml Output Urine Total 0 ml # Bowel Movements 2 5 Laboratory Tests Test 01/10/19 15:09 01/10/19 19:20 01/10/19 20:00 01/11/19 02:50 Arterial Blood pH 7.027 (7.350-7.450) 7.349 (7.350-7.450) Arterial Blood Partial Pressure CO2 46.4 mmHg (35.0-45.0) H 23.6 mmHg (35.0-45.0) *L Arterial Blood Partial Pressure O2 308.5 mmHg (75.0-100.0) H 149.7 mmHg (75.0-100.0) H Arterial Blood HCO3 11.9 mmol/L (22.0-26.0) *L 12.7 mmol/L (22.0-26.0) *L Arterial Blood Oxygen Saturation 99.5 % (95-100) 99.2 % (95-100) Arterial Blood Base Excess -18.7 (-2-2) *L -11 (-2-2) *L Wai Test Positive Positive White Blood Count 24.6 K/UL (4.8-10.8) #*H 17.1 K/UL (4.8-10.8) H Red Blood Count 4.80 M/UL (4.70-6.10) 4.14 M/UL (4.70-6.10) L Hemoglobin 13.2 G/DL (14.2-18.0) L 11.7 G/DL (14.2-18.0) L Hematocrit 44.6 % (42.0-52.0) 37.5 % (42.0-52.0) L Mean Corpuscular Volume 93 FL (80-99) 91 FL (80-99) Mean Corpuscular Hemoglobin 27.6 PG (27.0-31.0) 28.3 PG (27.0-31.0) Mean Corpuscular Hemoglobin Concent 29.6 G/DL (32.0-36.0) L 31.2 G/DL (32.0-36.0) L Red Cell Distribution Width 19.1 % (11.6-14.8) H 19.5 % (11.6-14.8) H Platelet Count 75 K/UL (150-450) L 97 K/UL (150-450) L Mean Platelet Volume 6.1 FL (6.5-10.1) L 6.4 FL (6.5-10.1) L Neutrophils (%) (Auto) % (45.0-75.0) % (45.0-75.0) Lymphocytes (%) (Auto) % (20.0-45.0) % (20.0-45.0) Monocytes (%) (Auto) % (1.0-10.0) % (1.0-10.0) Eosinophils (%) (Auto) % (0.0-3.0) % (0.0-3.0) Basophils (%) (Auto) % (0.0-2.0) % (0.0-2.0) Differential Total Cells Counted 100 100 Neutrophils % (Manual) 83 % (45-75) H 91 % (45-75) H Lymphocytes % (Manual) 2 % (20-45) L 5 % (20-45) L Monocytes % (Manual) 4 % (1-10) 4 % (1-10) Eosinophils % (Manual) 0 % (0-3) 0 % (0-3) Basophils % (Manual) 0 % (0-2) 0 % (0-2) Myelocytes % 1 % (0-0) H Band Neutrophils 10 % (0-8) H 0 % (0-8) Nucleated Red Blood Cells 1 /100 WBC Platelet Estimate Decreased L Decreased L Platelet Morphology Normal Normal Hypochromasia 1+ Anisocytosis 2+ 1+ Sodium Level 138 MMOL/L (136-145) Potassium Level 4.1 MMOL/L (3.5-5.1) Chloride Level 105 MMOL/L (98-107) Carbon Dioxide Level 15 MMOL/L (21-32) L Anion Gap 18 mmol/L (5-15) H Blood Urea Nitrogen 28 mg/dL (7-18) H Creatinine 3.8 MG/DL (0.55-1.30) H Estimat Glomerular Filtration Rate 19.5 mL/min (>60) Glucose Level 89 MG/DL (74-106) Calcium Level 8.6 MG/DL (8.5-10.1) Total Bilirubin 0.5 MG/DL (0.2-1.0) Aspartate Amino Transf (AST/SGOT) 352 U/L (15-37) H Alanine Aminotransferase (ALT/SGPT) 147 U/L (12-78) H Alkaline Phosphatase 542 U/L (46-116) H Troponin I 3.099 ng/mL (0.000-0.056) 5.475 ng/mL (0.000-0.056) Total Protein 8.3 G/DL (6.4-8.2) H Albumin 2.0 G/DL (3.4-5.0) L Globulin 6.3 g/dL Albumin/Globulin Ratio 0.3 (1.0-2.7) L Phosphorus Level 2.5 MG/DL (2.5-4.9) Magnesium Level 1.7 MG/DL (1.8-2.4) L Thyroid Stimulating Hormone (TSH) 6.547 uiU/mL (0.358-3.740) Test 01/11/19 09:21 Arterial Blood pH 7.521 (7.350-7.450) Arterial Blood Partial Pressure CO2 23.2 mmHg (35.0-45.0) *L Arterial Blood Partial Pressure O2 65.7 mmHg (75.0-100.0) L Arterial Blood HCO3 18.6 mmol/L (22.0-26.0) L Arterial Blood Oxygen Saturation 95.0 % (95-100) Arterial Blood Base Excess -2.7 (-2-2) L Wai Test Positive Objective 1. Status post van arrest. The patient received 10 amps of atropine and intubated. Decrease dopamine drip to 1mc/kg/min. Repeat EKG SR with lateral ischemia. Echo EF 55%. Etiology unclear but likeley SSS as had atrial flutter preop. 2. Atrial flutter converted to SR post Code 3. Hypotension. Decrease dopamine drip. 4. Troponin leak due to renal failure. 5. Respiratory failure, on the ventilator. 6. Diabetes. 7. Cirrhosis of the liver. 8. Thrombocytopenia. 9. End-stage renal disease, on hemodialysis, status post Left AV fistula creation. ROBER Martin 10. Status post left above-knee amputation. Guy Balderrama RN, MD Jan 11, 2019 14:53
--- NOTE | 2019-01-11 15:33 | Consultation ---
History of Present Illness General Date patient seen: Jan 11, 2019 Chief Complaint: AMS Reason for Consultation: S/P 3 Cardiac Arrests Present Illness HPI 63 y/o male admitted to icu after having a new av fistula creation c/b cardiac arrest. Pt. has been on dialysis x 4 months with oliguria, seen by PMD Celeste Snyder yesterday at hd which he tolerated well. Currently pt. in icu on pressors, and vent, non responsive to painful stimuli off sedation. Allergies: Coded Allergies: No Known Allergies (Unverified , 01/09/19) Medication History Scheduled Acetylcysteine* (Acetylcysteine*), 200 MG ORAL Q6, (Reported) Arginine/Ascorbate Sod/Ellie AC (Arginaid Powder), 1 EACH PO BID, (Reported) Docusate Sodium (Docusate Sodium), 5 ML PO BID, (Reported) Epoetin Beau (Epogen), 10,000 UNIT SUBQ 3XW, (Reported) Famotidine (Famotidine), 20 MG ORAL DAILY, (Reported) Heparin Sod (Porcine) (Heparin Sodium*), 5,000 UNITS SUBQ EVERY 12 HOURS, ( Reported) Insulin Regular, Human* (Novolin R*), 0 SUBQ .SLIDING SCALE, (Reported) Pantoprazole* (Pantoprazole*), 40 MG ORAL DAILY, (Reported) Vitamin B Cmplx/Vit C/Folic AC (Nephro-Lelie Tablet), 1 TAB ORAL DAILY, (Reported ) [Pro Stat Sugar Free ], 30 ML PO BID, (Reported) Scheduled PRN Simethicone* (Simethicone*), 80 MG ORAL BID PRN for GAS PAIN, (Reported) Patient History Limited by: medical condition History Provided By: Medical Record Healthcare decision maker unable to obtain Resuscitation status Full Code Advanced Directive on File unable to obtain Past Medical/Surgical History Past Medical/Surgical History: (1) Anemia (2) ESRD (end stage renal disease) (3) DM2 (diabetes mellitus, type 2) (4) Hypothyroid Review of Systems ROS Narrative Unable to obtain due to patient's coma. Physical Exam General Appearance: thin Lines, tubes and drains: peripheral, endotracheal tube, dialysis access HEENT: normocephalic, atraumatic Neck: normal alignment, supple Neurologic: no Babinski, abnormal CN, unresponsiveness, other - Comatose patient. GCS 3 with bilateral pinpoint sluggish pupils. No motor response x 4. Last 24 Hour Vital Signs Date Time Temp Pulse Resp B/P (MAP) Pulse Ox O2 Delivery O2 Flow Rate FiO2 01/11/19 15:01 98 23 40 60 01/11/19 13:20 106 23 40 60 01/11/19 12:00 40 01/11/19 12:00 Mechanical Ventilator 01/11/19 12:00 104 01/11/19 12:00 100.0 107 24 121/62 (81) 01/11/19 11:39 99 23 100 01/11/19 11:30 107 25 116/61 (79) 100 01/11/19 11:00 107 25 117/60 (79) 100 01/11/19 10:36 97 25 40 60 01/11/19 10:30 106 26 137/67 (90) 100 01/11/19 10:00 106 23 134/62 (86) 100 01/11/19 09:30 108 22 136/59 (84) 100 01/11/19 09:00 107 20 137/58 (84) 100 01/11/19 08:54 95 26 40 60 01/11/19 08:30 106 17 135/67 (89) 100 01/11/19 08:00 99.8 105 17 137/59 (85) 100 01/11/19 08:00 40 01/11/19 08:00 104 01/11/19 08:00 Mechanical Ventilator 01/11/19 07:30 104 19 135/65 (88) 100 01/11/19 07:00 103 21 136/58 (84) 100 01/11/19 06:41 99 23 40 60 01/11/19 06:30 104 22 137/67 (90) 100 01/11/19 06:00 103 22 139/55 (83) 100 01/11/19 05:30 102 22 135/65 (88) 100 01/11/19 05:25 103 24 40 60 01/11/19 05:00 103 22 143/68 (93) 100 01/11/19 04:30 103 22 136/68 (90) 100 01/11/19 04:00 104 01/11/19 04:00 Mechanical Ventilator 01/11/19 04:00 96.8 104 22 157/78 (104) 100 01/11/19 04:00 40 01/11/19 03:30 102 22 162/86 (111) 100 01/11/19 03:30 102 25 40 60 01/11/19 03:00 101 22 165/84 (111) 100 01/11/19 02:30 101 22 165/84 (111) 100 01/11/19 02:00 99 22 164/83 (110) 100 01/11/19 01:30 97 22 164/78 (106) 100 01/11/19 01:23 97 26 40 60 01/11/19 01:00 97 22 153/84 (107) 100 01/11/19 00:30 98 22 147/88 (107) 100 01/11/19 00:00 Mechanical Ventilator 01/11/19 00:00 94 01/11/19 00:00 95.4 94 22 155/80 (105) 100 01/11/19 00:00 40 01/10/19 23:30 93 22 145/91 (109) 100 01/10/19 23:05 92 23 40 60 01/10/19 23:00 92 22 148/79 (102) 100 01/10/19 22:30 92 22 152/86 (108) 100 01/10/19 22:00 91 22 153/84 (107) 100 01/10/19 21:45 91 22 152/86 (108) 100 01/10/19 21:30 90 22 143/85 (104) 100 01/10/19 21:15 91 22 145/88 (107) 100 01/10/19 21:00 90 22 150/80 (103) 100 01/10/19 20:45 89 22 155/82 (106) 100 01/10/19 20:36 88 22 50 60 01/10/19 20:30 88 22 144/81 (102) 100 01/10/19 20:15 88 22 138/88 (105) 100 01/10/19 20:00 88 22 134/90 (105) 100 01/10/19 20:00 50 01/10/19 20:00 Mechanical Ventilator 01/10/19 20:00 88 01/10/19 19:45 88 22 144/82 (102) 100 01/10/19 19:42 93 24 Room Air 60 01/10/19 19:30 88 22 130/83 (99) 100 01/10/19 19:15 90 22 144/92 (109) 100 01/10/19 19:05 79/41 01/10/19 19:00 95.2 92 22 161/82 (108) 100 01/10/19 18:58 93 24 60 60 01/10/19 18:30 60 12 92/55 (67) 100 01/10/19 18:00 59 12 73/44 (54) 100 01/10/19 17:30 60 12 78/39 (52) 100 01/10/19 17:06 92 12 60 01/10/19 17:00 93 12 132/62 (85) 100 01/10/19 16:30 83 12 86/44 (58) 100 01/10/19 16:00 60 01/10/19 16:00 66 01/10/19 16:00 95 12 104/58 (73) 100 Intake and Output 01/10/19 01/11/19 19:00 07:00 Intake Total 1261.236 ml Output Total 0 ml Balance 1261.236 ml Intake Oral 0 ml IV Total 1261.236 ml Output Urine Total 0 ml # Bowel Movements 2 5 Laboratory Tests Test 01/10/19 19:20 01/10/19 20:00 01/11/19 02:50 01/11/19 09:21 White Blood Count 24.6 K/UL (4.8-10.8) #*H 17.1 K/UL (4.8-10.8) H Red Blood Count 4.80 M/UL (4.70-6.10) 4.14 M/UL (4.70-6.10) L Hemoglobin 13.2 G/DL (14.2-18.0) L 11.7 G/DL (14.2-18.0) L Hematocrit 44.6 % (42.0-52.0) 37.5 % (42.0-52.0) L Mean Corpuscular Volume 93 FL (80-99) 91 FL (80-99) Mean Corpuscular Hemoglobin 27.6 PG (27.0-31.0) 28.3 PG (27.0-31.0) Mean Corpuscular Hemoglobin Concent 29.6 G/DL (32.0-36.0) L 31.2 G/DL (32.0-36.0) L Red Cell Distribution Width 19.1 % (11.6-14.8) H 19.5 % (11.6-14.8) H Platelet Count 75 K/UL (150-450) L 97 K/UL (150-450) L Mean Platelet Volume 6.1 FL (6.5-10.1) L 6.4 FL (6.5-10.1) L Neutrophils (%) (Auto) % (45.0-75.0) % (45.0-75.0) Lymphocytes (%) (Auto) % (20.0-45.0) % (20.0-45.0) Monocytes (%) (Auto) % (1.0-10.0) % (1.0-10.0) Eosinophils (%) (Auto) % (0.0-3.0) % (0.0-3.0) Basophils (%) (Auto) % (0.0-2.0) % (0.0-2.0) Differential Total Cells Counted 100 100 Neutrophils % (Manual) 83 % (45-75) H 91 % (45-75) H Lymphocytes % (Manual) 2 % (20-45) L 5 % (20-45) L Monocytes % (Manual) 4 % (1-10) 4 % (1-10) Eosinophils % (Manual) 0 % (0-3) 0 % (0-3) Basophils % (Manual) 0 % (0-2) 0 % (0-2) Myelocytes % 1 % (0-0) H Band Neutrophils 10 % (0-8) H 0 % (0-8) Nucleated Red Blood Cells 1 /100 WBC Platelet Estimate Decreased L Decreased L Platelet Morphology Normal Normal Hypochromasia 1+ Anisocytosis 2+ 1+ Sodium Level 138 MMOL/L (136-145) Potassium Level 4.1 MMOL/L (3.5-5.1) Chloride Level 105 MMOL/L (98-107) Carbon Dioxide Level 15 MMOL/L (21-32) L Anion Gap 18 mmol/L (5-15) H Blood Urea Nitrogen 28 mg/dL (7-18) H Creatinine 3.8 MG/DL (0.55-1.30) H Estimat Glomerular Filtration Rate 19.5 mL/min (>60) Glucose Level 89 MG/DL (74-106) Calcium Level 8.6 MG/DL (8.5-10.1) Total Bilirubin 0.5 MG/DL (0.2-1.0) Aspartate Amino Transf (AST/SGOT) 352 U/L (15-37) H Alanine Aminotransferase (ALT/SGPT) 147 U/L (12-78) H Alkaline Phosphatase 542 U/L (46-116) H Troponin I 3.099 ng/mL (0.000-0.056) 5.475 ng/mL (0.000-0.056) Total Protein 8.3 G/DL (6.4-8.2) H Albumin 2.0 G/DL (3.4-5.0) L Globulin 6.3 g/dL Albumin/Globulin Ratio 0.3 (1.0-2.7) L Arterial Blood pH 7.349 (7.350-7.450) 7.521 (7.350-7.450) Arterial Blood Partial Pressure CO2 23.6 mmHg (35.0-45.0) *L 23.2 mmHg (35.0-45.0) *L Arterial Blood Partial Pressure O2 149.7 mmHg (75.0-100.0) H 65.7 mmHg (75.0-100.0) L Arterial Blood HCO3 12.7 mmol/L (22.0-26.0) *L 18.6 mmol/L (22.0-26.0) L Arterial Blood Oxygen Saturation 99.2 % (95-100) 95.0 % (95-100) Arterial Blood Base Excess -11 (-2-2) *L -2.7 (-2-2) L Wai Test Positive Positive Phosphorus Level 2.5 MG/DL (2.5-4.9) Magnesium Level 1.7 MG/DL (1.8-2.4) L Thyroid Stimulating Hormone (TSH) 6.547 uiU/mL (0.358-3.740) Height (Feet): 5 Height (Inches): 10.00 Weight (Pounds): 130 Medications Current Medications Medications (Trade) Dose Ordered Sig/Elder Route PRN Reason Start Time Stop Time Status Last Admin Dose Admin Dopamine HCl/ Dextrose 250 ml @ 0 mls/hr Q24H IV 01/10/19 18:50 02/09/19 18:49 01/10/19 19:05 Levothyroxine Sodium (Synthroid) 25 mcg DAILY@0630 ORAL 01/12/19 06:30 02/11/19 06:29 Pantoprazole (Protonix) 40 mg DAILY IVP 01/11/19 09:00 02/10/19 08:59 01/11/19 09:58 Sodium Bicarbonate 150 ml/Dextrose 1,150 ml @ 100 mls/hr [id number] IV 01/10/19 18:30 02/09/19 18:29 01/11/19 05:58 Assessment/Plan Problem List: (1) Cardiac arrest Assessment & Plan: Critical Care treatment as per ICU team. MRI Brain as able. ICD Codes: I46.9 - Cardiac arrest, cause unspecified SNOMED: 141405192 (2) Respiratory failure ICD Codes: J96.90 - Respiratory failure, unspecified, unspecified whether with hypoxia or hypercapnia SNOMED: 426129536 Qualifiers: (3) Encephalopathy acute Assessment & Plan: Q2 Hour Neuro Maintain normothermia/ normoglycemia Na 135-145 CT Brain/ MRI when able. To remain intubated, with poor prognosis following 3 episodes of cardiac arrest today and poor neurological response. ICD Codes: G93.40 - Encephalopathy, unspecified SNOMED: 62266811, [id number] Rebecca Yousif N.P. Jan 11, 2019 15:33
--- NOTE | 2019-01-11 16:30 | NUR ---
NURSE NOTES: PT REPOSITONED, CLEANED, ORAL CARE PROVIDED. DOPAMINE OFF. BP106/56. WILL CONTINUE TO MONITOR PT. CALLS MADE TO MD BARKER REGARDING FAMILY REYES LOPEZ DESIRE TO HAVE INFO ON PT AND CONDITION. AWAITING CALL BACK.
[2019-01-11] MEDS ORDERED: Tubing IV Secondary IV ONE (16:40)
[2019-01-11] MEDS ORDERED: NS 275ml ONE (16:40)
[2019-01-11] MEDS: DOPamine 400mg/250ml 250 ML IV SCH (18:50)
--- NOTE | 2019-01-11 18:55 | NUR ---
NURSE NOTES: md graham here to see pt. was informed of temp 102, refer to ID., wait for blood culture, ok to order standard sliding scale for bg coverage, last bg 157. no consent for central line from family. wating to speak with Greg
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
--- NOTE | 2019-01-11 19:30 | NUR ---
NURSE NOTES: Recvd.on a Vent.orally intubated eyes close non-reactive to pain, pupils fixed and dilated.Flaccid upper and lower Ext.See V/S.OFF Dopa.drip.Scope SR with PVC'S.Pos. chg.Suctioned.No Gag Reflexes.IV with BICARB.inf.well (R)wrist,DANNY intact (R) SC.Elder.for poss.HD in am.GT-Feeding started via.
--- NOTE | 2019-01-11 19:55 | NUR ---
RESPIRATORY NOTE: Received pt. on 840 vent. Vent settings are: A/C rate of 22, Vt 600, FI02 40%, PEEP +5. No respiratory distress noted, pt Sp02 @ 100%. Vent plugged on red outlet. Will continue to monitor pt.
[2019-01-11] MEDS ORDERED: Acetaminophen 500mg (ES) tab ORAL PRN (20:00)
[2019-01-11] MEDS ORDERED: Dyna-Hex 2% Top Sol 2oz TOPIC SCH (20:00)
[2019-01-11] MEDS: NovoLOG Insulin Flexpen SUBQ SCH (21:00)
--- NOTE | 2019-01-11 21:00 | NUR ---
NURSE NOTES: Pos.Chg.Backrub with Lotion.Suctioned.NS Lavaged.NO Gag reflex.Neuro status same.
[2019-01-12] VITALS (23 sets, daily range): BP systolic 45–118; BP diastolic 22–72
--- NOTE | 2019-01-12 00:10 | NUR ---
NURSE NOTES: Repositioned,Suctioned.Krystle.Gt-feeding.rate inc.to desire goal.See V/S.Scope pattern same.Cont.Plan of care.
--- NOTE | 2019-01-12 02:10 | NUR ---
NURSE NOTES: Pos.chg.Suctioned.Status same.Cont.on Bicarb. drip.
[2019-01-12] MEDS: Sodium Bicarbonate 150 ML in D5W 1000ml 1,000 ML IV SCH (04:47)
--- NOTE | 2019-01-12 05:01 | NUR ---
NURSE NOTES: Imer Malik.Blood drawn for cbc spec.to Lab.Suctioned thin [place] color sec.NS Lavaged.Spec for C/S and Gr.St.send to lab.Spec.for MRSA/VRE/CRE collected.Venous doppler Lower ext.NEG.SCD applied (R)lower ext.Patient (L) BKA.Neuro status same.GT-Feeding rigo.See I/O.
[2019-01-12] MEDS: NovoLOG Insulin Flexpen SUBQ SCH ×2 (06:03→11:30)
[2019-01-12 06:08] LABS: HEMATOCRIT 32.9 % (42.0-52.0); HEMOGLOBIN 10.2 G/DL (14.2-18.0); MEAN CORPUSCULAR VOLUME 90 FL (80-99); PLATELET COUNT 88 K/UL (150-450); RED BLOOD COUNT 3.64 M/UL (4.70-6.10); RED CELL DISTRIBUTION WIDTH 19.5 % (11.6-14.8); WHITE BLOOD COUNT 17.6 K/UL (4.8-10.8)
[2019-01-12] MEDS: DOPamine 400mg/250ml 250 ML IV SCH (06:22)
[2019-01-12] MEDS ORDERED: Levothyroxine 25mcg tab ORAL SCH (06:30)
--- NOTE | 2019-01-12 06:40 | NUR ---
RESPIRATORY NOTE: Received pt on ordered vent settings. Pt endotracheal tube is patent and secured. Suctioned pt prn. Vent alarms are on and audible. Vent is plugged into red outlet. Will monitor pt progress.
--- NOTE | 2019-01-12 06:44 | NUR ---
NURSE NOTES: Suctioned,B/P noted to start going down slowly after bathe,Restarted back on Dopa.drip.Scope rhythm ST with PVC's.Cont.on close monitoring.
--- NOTE | 2019-01-12 07:10 | NUR ---
NURSE NOTES: Patient received from VICKI Whyte. Patient is comatose. Patient is being monitored on the farm machine operator. Patient VS 105/65, HR 138, RR 11 and SPO2 99%. Patient does not appear in any acute distress however patient is non-reactive to deep pain stimulus, pupils are fixed and dilated measuring at 5mm with no reaction to light. Patient has no gag reflex, arms and legs are flaccid. Patient has a R Jace with pigtail that is intact, asymptomatic and patent running Dopa at 10 mcgs. Patient has Bicarb drip running 100 ml/hr in RW 20G. Patient has GT with Glucerna at 20 ml/hr. Patient is anuric. Safety measures are in place with bed locked in the lowest position with patient close to nurses station to closely monitor. Will contact MD for additional orders.
--- NOTE | 2019-01-12 07:56 | NUR ---
NURSE NOTES: Called Dr Faria regarding patient's Irregular Irregular HR. Patient's HR is currently 130s- 160s on Dopamine. Dopa is currently at 10 mcgs titrated to 8 mcgs however BP is 71/53. Changed Dopa to Levophed. Called pharmacy to verify. Also called family to discuss DNR.
--- NOTE | 2019-01-12 08:41 | NUR ---
NURSE NOTES: Called Dr Barbour regarding INC HR despite changes to pressor. HR continues to be RVR. Awaiting MDs response for further instruction. Will monitor closely.
[2019-01-12] MEDS: Pantoprazole Inj IVP SCH (09:56)
--- NOTE | 2019-01-12 10:15 | NUR ---
NURSE NOTES: Patient had a very large BM. Patient was changed, linens changed and gown changed. Patient very hemodynamically unstable and does not tolerate position changes well. Will monitor patient closely.
[2019-01-12] MEDS ORDERED: Digoxin 0.5mg/2ml Inj IVP SCH (10:30)
--- NOTE | 2019-01-12 10:39 | Nephrology Progress Note ---
Assessment/Plan Problem List: (1) Cardiac arrest Assessment: - prognosis poor,will contact family, -cont pressors, changed to levophed -pulmonary and cards eval appreciated -prognosis poor -trop still rising -now unstable, w/d family re- terminal extubation (2) Anemia Assessment: - follow h.h -gi prophylaxis -epogen intermittent with hd (3) Respiratory failure Assessment: -pulmonary f/u -cxr reviewed -unable to wean -cont current vent settings, abg noted -on bicarb (4) ESRD (end stage renal disease) Assessment: -adjust meds to lower crcl -plan hd today if stable -s/p new fistula, access care per vascular (5) DM2 (diabetes mellitus, type 2) Assessment: - place on d5ns -follow bs q 6 with sliding scale (6) Encephalopathy acute Assessment: -likely anoxic brain injruy, per neuro, d/w family (7) Hypothyroid Assessment: -started iv synthroid Subjective ROS Limited/Unobtainable: Yes Subjective pt. seen and examined in icu. cards and pulmonary eval noted d/w rn dopa stopped secondary RVR, now on levophed on vent 100%fio2 non responsive. unable to do hd secondary to tachy, low bp, unstable Objective Objective Last 24 Hour Vital Signs Date Time Temp Pulse Resp B/P (MAP) Pulse Ox O2 Delivery O2 Flow Rate FiO2 01/12/19 09:20 131 22 100 60 01/12/19 08:18 86/53 01/12/19 08:00 100 01/12/19 06:40 100 22 40 60 01/12/19 06:22 72/48 01/12/19 06:00 120 22 87/55 (66) 100 01/12/19 05:02 91 22 40 60 01/12/19 05:00 100 22 72/48 (56) 100 01/12/19 04:00 Mechanical Ventilator 01/12/19 04:00 98 01/12/19 04:00 40 01/12/19 04:00 96.0 98 22 89/56 (67) 100 01/12/19 03:00 90 22 107/54 (71) 100 01/12/19 02:39 97 23 40 60 01/12/19 02:00 88 22 118/54 (75) 100 01/12/19 01:00 84 22 111/55 (73) 100 01/12/19 00:57 84 24 40 60 01/12/19 00:00 Mechanical Ventilator 01/12/19 00:00 40 01/12/19 00:00 88 01/12/19 00:00 97.2 87 22 102/51 (68) 100 01/11/19 23:20 89 23 40 60 01/11/19 23:00 87 22 108/52 (70) 100 01/11/19 22:00 88 20 109/58 (75) 100 01/11/19 21:45 86 22 40 60 01/11/19 21:00 90 20 100/48 (65) 100 01/11/19 20:00 40 01/11/19 20:00 93 01/11/19 20:00 93 100/55 (70) 01/11/19 20:00 Mechanical Ventilator 01/11/19 19:53 92 24 40 60 01/11/19 19:30 93 100/48 (65) 01/11/19 19:00 96.4 94 101/52 (68) 01/11/19 18:50 99/51 01/11/19 18:00 94 95/47 (63) 01/11/19 17:00 95 101/52 (68) 01/11/19 16:32 94 22 40 60 01/11/19 16:30 96 106/56 (73) 01/11/19 16:00 98 01/11/19 16:00 101.0 99 108/53 (71) 01/11/19 16:00 Mechanical Ventilator 01/11/19 16:00 40 01/11/19 15:30 98 104/56 (72) 01/11/19 15:01 98 23 40 60 01/11/19 15:00 98 104/53 (70) 01/11/19 14:30 99 99/53 (68) 01/11/19 14:00 105 115/58 (77) 01/11/19 13:30 108 108/55 (72) 01/11/19 13:20 106 23 40 60 01/11/19 13:00 106 118/60 (79) 01/11/19 12:30 107 120/62 (81) 01/11/19 12:00 40 01/11/19 12:00 Mechanical Ventilator 01/11/19 12:00 104 01/11/19 12:00 100.0 107 24 121/62 (81) 01/11/19 11:39 99 23 100 01/11/19 11:30 107 25 116/61 (79) 100 01/11/19 11:00 107 25 117/60 (79) 100 01/11/19 10:36 97 25 40 60 Intake and Output 01/11/19 01/12/19 18:59 06:59 Intake Total 1205.103 ml 1410 ml Output Total 0 ml 0 ml Balance 1205.103 ml 1410 ml Intake Oral 0 ml IV Total 1205.103 ml 1200 ml Tube Feeding 210 ml Output Urine Total 0 ml 0 ml # Bowel Movements 4 3 Laboratory Tests 01/12/19 04:00: White Blood Count 17.6H, Red Blood Count 3.64L, Hemoglobin 10.2L, Hematocrit 32.9L, Mean Corpuscular Volume 90, Mean Corpuscular Hemoglobin 27.9, Mean Corpuscular Hemoglobin Concent 30.9L, Red Cell Distribution Width 19.5H, Platelet Count 88L, Mean Platelet Volume 6.3L, Neutrophils (%) (Auto) , Lymphocytes (%) (Auto) , Monocytes (%) (Auto) , Eosinophils (%) (Auto) , Basophils (%) (Auto) , Differential Total Cells Counted 100, Neutrophils % ( Manual) 83H, Lymphocytes % (Manual) 9L, Monocytes % (Manual) 6, Eosinophils % ( Manual) 0, Basophils % (Manual) 0, Band Neutrophils 2, Platelet Estimate DecreasedL, Platelet Morphology Normal, Hypochromasia 1+, Anisocytosis 1+ 01/12/19 09:20: Arterial Blood pH 7.408, Arterial Blood Partial Pressure CO2 28.7L, Arterial Blood Partial Pressure O2 51.0L, Arterial Blood HCO3 17.7*L, Arterial Blood Oxygen Saturation 94.0L, Arterial Blood Base Excess -5.4L, Wai Test Positive Height (Feet): 5 Height (Inches): 10.00 Weight (Pounds): 132 General Appearance: lethargic, moderate distress, cachetic EENT: normal ENT inspection, pale conjunctivae Neck: supple, limited range of motion Cardiovascular: tachycardia Respiratory/Chest: crackles/rales Abdomen: normal bowel sounds, soft Extremities: trace edema Neurologic: abnormal nursing unit manager II-XII, unresponsive, aphasia Giovani Garza M.D. Jan 12, 2019 10:39
--- NOTE | 2019-01-12 10:45 | Diagnostic Imaging Report ---
ADDENDUM - Added by Constance Francisco M.D. on 01/12/2019 10:58 AM (-07:00) Impression: 3. There is new consolidation with air bronchograms and opacification of the complete right hemithorax. Left perihilar airspace opacities, worse than prior study. EXAM: XR Chest, 1 View CLINICAL HISTORY: F/U TECHNIQUE: Frontal view of the chest. COMPARISON: Chest x-ray, 01/10/19 1530 FINDINGS: Lungs: There is new consolidation with air bronchograms and opacification of the complete right hemithorax. Left perihilar airspace opacities, worse than prior study. Pleural space: Moderate right pleural effusion, similar to slightly worse. Small left pleural effusion. No pneumothorax. Heart: Cardiomegaly. Mediastinum: Unremarkable. Bones/joints: Unremarkable. Tubes, lines and devices: Endotracheal tube tip at the jorge luis with a tubular opacity entering into the right mainstem bronchus may be projectional. Consider pulling back the endotracheal tube 3.5 cm. Stable right IJ catheter. IMPRESSION: 1. Endotracheal tube tip at the jorge luis with a tubular opacity entering into the right mainstem bronchus may be projectional. Consider pulling back the endotracheal tube 3.5 cm. 2. Moderate right pleural effusion, similar to slightly worse. Small left pleural effusion. <MYCVCSECTION> Critical Value Communications 01/12/19 10:55 Call Nurse VICKI Das in ICU on 01/12 10:53 (-07:00) 01/12/19 11:03 Verify Receipt Verified receipt with VICKI Das in ICU on 01/12 11:03 (-07:00)
--- NOTE | 2019-01-12 10:50 | NUR ---
NURSE NOTES: Dr Barbour called and per his orders, give Dig 0.5 IVP and start Amio per protocol. Will continue to monitor closely and follow MD plan of care
[2019-01-12] MEDS ORDERED: Amiodarone 900 MG in D5W 500ml 482 ML IV SCH (11:30)
[2019-01-12] MEDS ORDERED: Zosyn 2.25 gm in D5W 55ml IV SCH (12:00)
[2019-01-12 12:17] LABS: ANION GAP 17 mmol/L (5-15); BLOOD UREA NITROGEN 42 mg/dL (7-18); CARBON DIOXIDE 22 MMOL/L (21-32); CHLORIDE 101 MMOL/L (98-107); CREATININE 5.3 MG/DL (0.55-1.30); POTASSIUM 3.3 MMOL/L (3.5-5.1); SODIUM 140 MMOL/L (136-145)
--- NOTE | 2019-01-12 12:38 | Critical Care Progress Note ---
Assessment/Plan Assessment/Plan s/p cardiac arrest acute encephalopathy acidemia respiratory failure, acute ESRD on HD acute IL, elevated troponin elevated wbc possible sepsis thrombocytopenia anoxia tachyarrythmia PLAN digoxin given cultures ordered care noted IV antibiotics orders respiratory care Ventilatory support hyperventilate monitor acid base supportive care suction as needed neuro evaluation no wean for now oxygen therapy prognosis poor remains critical medications/laboratory data/nursing notes/ICU care reviewed in detail note reviewed and edited care discussed with RN and RT ICU time spent 45 minutes Critical Care - Subjective Interval Events: doing poorly seen earlier on vent unresponsive tachy ROS Limited/Unobtainable: Yes Condition: critical EKG Rhythm: Sinus Tachycardia I&O: Intake and Output 01/11/19 01/12/19 18:59 06:59 Intake Total 1205.103 ml 1410 ml Output Total 0 ml 0 ml Balance 1205.103 ml 1410 ml Intake Oral 0 ml IV Total 1205.103 ml 1200 ml Tube Feeding 210 ml Output Urine Total 0 ml 0 ml # Bowel Movements 4 3 Critical Care - Objective ET-Tube: 8.0 ET Position: 24 Last 24 Hour Vital Signs Date Time Temp Pulse Resp B/P (MAP) Pulse Ox O2 Delivery O2 Flow Rate FiO2 01/12/19 11:06 146 22 100 60 01/12/19 10:42 178 01/12/19 09:20 131 22 100 60 01/12/19 08:18 86/53 01/12/19 08:00 100 01/12/19 06:40 100 22 40 60 01/12/19 06:22 72/48 01/12/19 06:00 120 22 87/55 (66) 100 01/12/19 05:02 91 22 40 60 01/12/19 05:00 100 22 72/48 (56) 100 01/12/19 04:00 Mechanical Ventilator 01/12/19 04:00 98 01/12/19 04:00 40 01/12/19 04:00 96.0 98 22 89/56 (67) 100 01/12/19 03:00 90 22 107/54 (71) 100 01/12/19 02:39 97 23 40 60 01/12/19 02:00 88 22 118/54 (75) 100 01/12/19 01:00 84 22 111/55 (73) 100 01/12/19 00:57 84 24 40 60 01/12/19 00:00 Mechanical Ventilator 01/12/19 00:00 40 01/12/19 00:00 88 01/12/19 00:00 97.2 87 22 102/51 (68) 100 01/11/19 23:20 89 23 40 60 01/11/19 23:00 87 22 108/52 (70) 100 01/11/19 22:00 88 20 109/58 (75) 100 01/11/19 21:45 86 22 40 60 01/11/19 21:00 90 20 100/48 (65) 100 01/11/19 20:00 40 01/11/19 20:00 93 01/11/19 20:00 93 100/55 (70) 01/11/19 20:00 Mechanical Ventilator 01/11/19 19:53 92 24 40 60 01/11/19 19:30 93 100/48 (65) 01/11/19 19:00 96.4 94 101/52 (68) 01/11/19 18:50 99/51 01/11/19 18:00 94 95/47 (63) 01/11/19 17:00 95 101/52 (68) 01/11/19 16:32 94 22 40 60 01/11/19 16:30 96 106/56 (73) 01/11/19 16:00 98 01/11/19 16:00 101.0 99 108/53 (71) 01/11/19 16:00 Mechanical Ventilator 01/11/19 16:00 40 01/11/19 15:30 98 104/56 (72) 01/11/19 15:01 98 23 40 60 01/11/19 15:00 98 104/53 (70) 01/11/19 14:30 99 99/53 (68) 01/11/19 14:00 105 115/58 (77) 01/11/19 13:30 108 108/55 (72) 01/11/19 13:20 106 23 40 60 01/11/19 13:00 106 118/60 (79) Labs: Labs Test 01/10/19 08:35 01/10/19 15:09 01/10/19 19:20 01/10/19 20:00 White Blood Count 6.1 K/UL (4.8-10.8) 24.6 K/UL (4.8-10.8) Red Blood Count 4.61 M/UL (4.70-6.10) 4.80 M/UL (4.70-6.10) Hemoglobin 12.7 G/DL (14.2-18.0) 13.2 G/DL (14.2-18.0) Hematocrit 43.0 % (42.0-52.0) 44.6 % (42.0-52.0) Mean Corpuscular Volume 93 FL (80-99) 93 FL (80-99) Mean Corpuscular Hemoglobin 27.6 PG (27.0-31.0) 27.6 PG (27.0-31.0) Mean Corpuscular Hemoglobin Concent 29.6 G/DL (32.0-36.0) 29.6 G/DL (32.0-36.0) Red Cell Distribution Width 20.1 % (11.6-14.8) 19.1 % (11.6-14.8) Platelet Count 78 K/UL (150-450) 75 K/UL (150-450) Mean Platelet Volume 6.7 FL (6.5-10.1) 6.1 FL (6.5-10.1) Neutrophils (%) (Auto) % (45.0-75.0) % (45.0-75.0) Lymphocytes (%) (Auto) % (20.0-45.0) % (20.0-45.0) Monocytes (%) (Auto) % (1.0-10.0) % (1.0-10.0) Eosinophils (%) (Auto) % (0.0-3.0) % (0.0-3.0) Basophils (%) (Auto) % (0.0-2.0) % (0.0-2.0) Differential Total Cells Counted 100 100 Neutrophils % (Manual) 57 % (45-75) 83 % (45-75) Lymphocytes % (Manual) 34 % (20-45) 2 % (20-45) Monocytes % (Manual) 9 % (1-10) 4 % (1-10) Eosinophils % (Manual) 0 % (0-3) 0 % (0-3) Basophils % (Manual) 0 % (0-2) 0 % (0-2) Band Neutrophils 0 % (0-8) 10 % (0-8) Platelet Estimate Decreased Decreased Platelet Morphology Normal Normal Anisocytosis 2+ 2+ Prothrombin Time 13.8 SEC (9.30-11.50) Prothromb Time International Ratio 1.3 (0.9-1.1) Activated Partial Thromboplast Time 39 SEC (23-33) Sodium Level 136 MMOL/L (136-145) 138 MMOL/L (136-145) Potassium Level 4.4 MMOL/L (3.5-5.1) 4.1 MMOL/L (3.5-5.1) Chloride Level 104 MMOL/L (98-107) 105 MMOL/L (98-107) Carbon Dioxide Level 22 MMOL/L (21-32) 15 MMOL/L (21-32) Anion Gap 10 mmol/L (5-15) 18 mmol/L (5-15) Blood Urea Nitrogen 25 mg/dL (7-18) 28 mg/dL (7-18) Creatinine 3.5 MG/DL (0.55-1.30) 3.8 MG/DL (0.55-1.30) Estimat Glomerular Filtration Rate 21.5 mL/min (>60) 19.5 mL/min (>60) Glucose Level 81 MG/DL (74-106) 89 MG/DL (74-106) Calcium Level 8.7 MG/DL (8.5-10.1) 8.6 MG/DL (8.5-10.1) Arterial Blood pH 7.027 (7.350-7.450) 7.349 (7.350-7.450) Arterial Blood Partial Pressure CO2 46.4 mmHg (35.0-45.0) 23.6 mmHg (35.0-45.0) Arterial Blood Partial Pressure O2 308.5 mmHg (75.0-100.0) 149.7 mmHg (75.0-100.0) Arterial Blood HCO3 11.9 mmol/L (22.0-26.0) 12.7 mmol/L (22.0-26.0) Arterial Blood Oxygen Saturation 99.5 % (95-100) 99.2 % (95-100) Arterial Blood Base Excess -18.7 (-2-2) -11 (-2-2) Awi Test Positive Positive Myelocytes % 1 % (0-0) Nucleated Red Blood Cells 1 /100 WBC Hypochromasia 1+ Total Bilirubin 0.5 MG/DL (0.2-1.0) Aspartate Amino Transf (AST/SGOT) 352 U/L (15-37) Alanine Aminotransferase (ALT/SGPT) 147 U/L (12-78) Alkaline Phosphatase 542 U/L (46-116) Troponin I 3.099 ng/mL (0.000-0.056) Total Protein 8.3 G/DL (6.4-8.2) Albumin 2.0 G/DL (3.4-5.0) Globulin 6.3 g/dL Albumin/Globulin Ratio 0.3 (1.0-2.7) Test 01/11/19 02:50 01/11/19 09:21 01/12/19 04:00 01/12/19 09:20 White Blood Count 17.1 K/UL (4.8-10.8) 17.6 K/UL (4.8-10.8) Red Blood Count 4.14 M/UL (4.70-6.10) 3.64 M/UL (4.70-6.10) Hemoglobin 11.7 G/DL (14.2-18.0) 10.2 G/DL (14.2-18.0) Hematocrit 37.5 % (42.0-52.0) 32.9 % (42.0-52.0) Mean Corpuscular Volume 91 FL (80-99) 90 FL (80-99) Mean Corpuscular Hemoglobin 28.3 PG (27.0-31.0) 27.9 PG (27.0-31.0) Mean Corpuscular Hemoglobin Concent 31.2 G/DL (32.0-36.0) 30.9 G/DL (32.0-36.0) Red Cell Distribution Width 19.5 % (11.6-14.8) 19.5 % (11.6-14.8) Platelet Count 97 K/UL (150-450) 88 K/UL (150-450) Mean Platelet Volume 6.4 FL (6.5-10.1) 6.3 FL (6.5-10.1) Neutrophils (%) (Auto) % (45.0-75.0) % (45.0-75.0) Lymphocytes (%) (Auto) % (20.0-45.0) % (20.0-45.0) Monocytes (%) (Auto) % (1.0-10.0) % (1.0-10.0) Eosinophils (%) (Auto) % (0.0-3.0) % (0.0-3.0) Basophils (%) (Auto) % (0.0-2.0) % (0.0-2.0) Differential Total Cells Counted 100 100 Neutrophils % (Manual) 91 % (45-75) 83 % (45-75) Lymphocytes % (Manual) 5 % (20-45) 9 % (20-45) Monocytes % (Manual) 4 % (1-10) 6 % (1-10) Eosinophils % (Manual) 0 % (0-3) 0 % (0-3) Basophils % (Manual) 0 % (0-2) 0 % (0-2) Band Neutrophils 0 % (0-8) 2 % (0-8) Platelet Estimate Decreased Decreased Platelet Morphology Normal Normal Anisocytosis 1+ 1+ Phosphorus Level 2.5 MG/DL (2.5-4.9) Magnesium Level 1.7 MG/DL (1.8-2.4) Troponin I 5.475 ng/mL (0.000-0.056) Thyroid Stimulating Hormone (TSH) 6.547 uiU/mL (0.358-3.740) Arterial Blood pH 7.521 (7.350-7.450) 7.408 (7.350-7.450) Arterial Blood Partial Pressure CO2 23.2 mmHg (35.0-45.0) 28.7 mmHg (35.0-45.0) Arterial Blood Partial Pressure O2 65.7 mmHg (75.0-100.0) 51.0 mmHg (75.0-100.0) Arterial Blood HCO3 18.6 mmol/L (22.0-26.0) 17.7 mmol/L (22.0-26.0) Arterial Blood Oxygen Saturation 95.0 % (95-100) 94.0 % (95-100) Arterial Blood Base Excess -2.7 (-2-2) -5.4 (-2-2) Wai Test Positive Positive Hypochromasia 1+ Test 01/12/19 11:48 01/12/19 12:22 Sodium Level 140 MMOL/L (136-145) Potassium Level 3.3 MMOL/L (3.5-5.1) Chloride Level 101 MMOL/L (98-107) Carbon Dioxide Level 22 MMOL/L (21-32) Anion Gap 17 mmol/L (5-15) Blood Urea Nitrogen 42 mg/dL (7-18) Creatinine 5.3 MG/DL (0.55-1.30) Estimat Glomerular Filtration Rate 13.3 mL/min (>60) Glucose Level 88 MG/DL (74-106) Calcium Level 8.0 MG/DL (8.5-10.1) Magnesium Level 1.6 MG/DL (1.8-2.4) Arterial Blood pH 7.067 (7.350-7.450) Arterial Blood Partial Pressure CO2 51.7 mmHg (35.0-45.0) Arterial Blood Partial Pressure O2 64.3 mmHg (75.0-100.0) Arterial Blood HCO3 14.5 mmol/L (22.0-26.0) Arterial Blood Oxygen Saturation 81.1 % (95-100) Arterial Blood Base Excess -15.5 (-2-2) Wai Test Positive Objective: WDWN NAD orally intubated poor LOC reduced breath sounds bilaterally without rhonchi or wheeze S1S2RR tachy without MRG NABS nontender no HSM; no distention no CCE BKA unreactive pupils unresponsive Micro: Microbiology Date/Time Source Procedure Growth Status 01/12/19 04:30 Rectum Received Accucheck: 121 Gray Hidalgo MD Jan 12, 2019 12:38
--- NOTE | 2019-01-12 12:45 | NUR ---
CODE BLUE: See Code sheet which remains on paper. Patient's Levophed finished and pharmacy was just bringing up the new one. Patient's HR went from 120s to 100s to 80s to 60s to 30s to asystole. CPR was immediately started, EPI was given. Code Blue was instituted and RT, ER MD arrived. Adequate CPR was given and ROSC was achieved. Patient continues to be unresponsive, gag absent, no response to pain, pupils are fixed and dilated. Patient will continue to be monitored closely. ER MD Dr Tomas stated that family should be followed up with a phone call to discuss the care of this patient given this being the s/p arrest x 4.
--- NOTE | 2019-01-12 13:00 | NUR ---
NURSE NOTES: Family of patient, specifically the sister, Ms Cason was called regarding Code Status of patient. Per family, code status is to remain full code and all attempts to revive patient should be attempted if patient should go into cardiac arrest again.
[2019-01-12] MEDS ORDERED: Piperacillin/Tazobactam 3.375 GM in NS 110 ML IVPB SCH (14:00)
[2019-01-12] MEDS ORDERED: NS 275ml ONE (14:29)
--- NOTE | 2019-01-12 15:00 | NUR ---
CODE BLUE: Please See Code sheet which remains on paper Patient again began to go from afib with HR of 80s-70s to quickly go to SB 40s to 20s to asystole. CPR commenced immediately and a CODE BLUE was initiated. All attempted were made to revive and return to ROSC however this was the 5th attempt. Patient is s/p cardiac arrest x 5 which was 2nd time today. Patient . Patient's family was called, Dr Martin was called by corporate securities research analyst, One [employer] was called and Mash Processing Operator was also called. Patient was pronounced by Dr Tomas at [phone].
--- NOTE | 2019-01-12 15:18 | Cardiac Electrophysiology PN ---
Assessment/Plan Assessment/Plan 1. Status post recurrent van arrest. Coded 5 times. EKG SR with lateral ischemia. Echo EF 55%. 2. Atrial flutter with RVR Dopamine changed to Levophed 3. Shock, was on Levophed 4. Troponin leak due to renal failure. 5. Respiratory failure 6. Diabetes. 7. Cirrhosis of the liver. 8. Thrombocytopenia. 9. End-stage renal disease, on hemodialysis, status post Left AV fistula creation. FU Dr Martin 10. Status post left above-knee amputation. 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 Dopamine was changed to Levophed and patient was given Digoxin 0.5 iv. While awaiting Amio drip to start, BP dropped to 60s and HR dropped as well.Coded at 12.11 am. Before Amio started developed asystole again and was coded at 2 pm again Objective Last 24 Hour Vital Signs Date Time Temp Pulse Resp B/P (MAP) Pulse Ox O2 Delivery O2 Flow Rate FiO2 01/12/19 14:21 51/31 01/12/19 13:10 138 22 100 60 01/12/19 12:00 100 01/12/19 12:00 Mechanical Ventilator 01/12/19 11:06 146 22 100 60 01/12/19 10:42 178 01/12/19 09:20 131 22 100 60 01/12/19 08:18 86/53 01/12/19 08:00 100 01/12/19 08:00 Mechanical Ventilator 01/12/19 06:40 100 22 40 60 01/12/19 06:22 72/48 01/12/19 06:00 120 22 87/55 (66) 100 01/12/19 05:02 91 22 40 60 01/12/19 05:00 100 22 72/48 (56) 100 01/12/19 04:00 Mechanical Ventilator 01/12/19 04:00 98 01/12/19 04:00 40 01/12/19 04:00 96.0 98 22 89/56 (67) 100 01/12/19 03:00 90 22 107/54 (71) 100 01/12/19 02:39 97 23 40 60 01/12/19 02:00 88 22 118/54 (75) 100 01/12/19 01:00 84 22 111/55 (73) 100 01/12/19 00:57 84 24 40 60 01/12/19 00:00 Mechanical Ventilator 01/12/19 00:00 40 01/12/19 00:00 88 01/12/19 00:00 97.2 87 22 102/51 (68) 100 01/11/19 23:20 89 23 40 60 01/11/19 23:00 87 22 108/52 (70) 100 01/11/19 22:00 88 20 109/58 (75) 100 01/11/19 21:45 86 22 40 60 01/11/19 21:00 90 20 100/48 (65) 100 01/11/19 20:00 40 01/11/19 20:00 93 01/11/19 20:00 93 100/55 (70) 01/11/19 20:00 Mechanical Ventilator 01/11/19 19:53 92 24 40 60 01/11/19 19:30 93 100/48 (65) 01/11/19 19:00 96.4 94 101/52 (68) 01/11/19 18:50 99/51 01/11/19 18:00 94 95/47 (63) 01/11/19 17:00 95 101/52 (68) 01/11/19 16:32 94 22 40 60 01/11/19 16:30 96 106/56 (73) 01/11/19 16:00 98 01/11/19 16:00 101.0 99 108/53 (71) 01/11/19 16:00 Mechanical Ventilator 01/11/19 16:00 40 01/11/19 15:30 98 104/56 (72) Intake and Output 01/11/19 01/12/19 18:59 06:59 Intake Total 1205.103 ml 1410 ml Output Total 0 ml 0 ml Balance 1205.103 ml 1410 ml Intake Oral 0 ml IV Total 1205.103 ml 1200 ml Tube Feeding 210 ml Output Urine Total 0 ml 0 ml # Bowel Movements 4 3 Laboratory Tests Test 01/12/19 04:00 01/12/19 09:20 01/12/19 11:48 01/12/19 12:22 White Blood Count 17.6 K/UL (4.8-10.8) H Red Blood Count 3.64 M/UL (4.70-6.10) L Hemoglobin 10.2 G/DL (14.2-18.0) L Hematocrit 32.9 % (42.0-52.0) L Mean Corpuscular Volume 90 FL (80-99) Mean Corpuscular Hemoglobin 27.9 PG (27.0-31.0) Mean Corpuscular Hemoglobin Concent 30.9 G/DL (32.0-36.0) L Red Cell Distribution Width 19.5 % (11.6-14.8) H Platelet Count 88 K/UL (150-450) L Mean Platelet Volume 6.3 FL (6.5-10.1) L Neutrophils (%) (Auto) % (45.0-75.0) Lymphocytes (%) (Auto) % (20.0-45.0) Monocytes (%) (Auto) % (1.0-10.0) Eosinophils (%) (Auto) % (0.0-3.0) Basophils (%) (Auto) % (0.0-2.0) Differential Total Cells Counted 100 Neutrophils % (Manual) 83 % (45-75) H Lymphocytes % (Manual) 9 % (20-45) L Monocytes % (Manual) 6 % (1-10) Eosinophils % (Manual) 0 % (0-3) Basophils % (Manual) 0 % (0-2) Band Neutrophils 2 % (0-8) Platelet Estimate Decreased L Platelet Morphology Normal Hypochromasia 1+ Anisocytosis 1+ Arterial Blood pH 7.408 (7.350-7.450) 7.067 (7.350-7.450) Arterial Blood Partial Pressure CO2 28.7 mmHg (35.0-45.0) L 51.7 mmHg (35.0-45.0) H Arterial Blood Partial Pressure O2 51.0 mmHg (75.0-100.0) L 64.3 mmHg (75.0-100.0) L Arterial Blood HCO3 17.7 mmol/L (22.0-26.0) *L 14.5 mmol/L (22.0-26.0) *L Arterial Blood Oxygen Saturation 94.0 % (95-100) L 81.1 % (95-100) *L Arterial Blood Base Excess -5.4 (-2-2) L -15.5 (-2-2) *L Wai Test Positive Positive Sodium Level 140 MMOL/L (136-145) Potassium Level 3.3 MMOL/L (3.5-5.1) L Chloride Level 101 MMOL/L (98-107) Carbon Dioxide Level 22 MMOL/L (21-32) Anion Gap 17 mmol/L (5-15) H Blood Urea Nitrogen 42 mg/dL (7-18) H Creatinine 5.3 MG/DL (0.55-1.30) H Estimat Glomerular Filtration Rate 13.3 mL/min (>60) Glucose Level 88 MG/DL (74-106) Calcium Level 8.0 MG/DL (8.5-10.1) L Magnesium Level 1.6 MG/DL (1.8-2.4) L Microbiology Date/Time Source Procedure Growth Status 01/12/19 04:30 Rectum Received Objective HEENT: Orally intubated Ext: No edema Guy Barbour MD Jan 12, 2019 15:18
--- NOTE | 2019-01-12 15:32 | Emergency Room Report ---
Physical Exam Code Blue Patient with 4 prior Code Blues. Here for dialysis fistula placement. Coded in OR. On levophed. Unable to tolerate Dopamine as patient becomes tachycardic. On bicarb drip. Potassium normal. Patient has been unresponsive during ICU stay. Patient asystolic. Epi given prior to my arrival. Last 24 Hour Vital Signs Date Time Temp Pulse Resp B/P (MAP) Pulse Ox O2 Delivery O2 Flow Rate FiO2 01/12/19 14:21 51/31 01/12/19 13:10 138 22 100 60 01/12/19 12:00 100 01/12/19 12:00 Mechanical Ventilator 01/12/19 11:06 146 22 100 60 01/12/19 10:42 178 01/12/19 09:20 131 22 100 60 01/12/19 08:18 86/53 01/12/19 08:00 100 01/12/19 08:00 Mechanical Ventilator 01/12/19 06:40 100 22 40 60 01/12/19 06:22 72/48 01/12/19 06:00 120 22 87/55 (66) 100 01/12/19 05:02 91 22 40 60 01/12/19 05:00 100 22 72/48 (56) 100 01/12/19 04:00 Mechanical Ventilator 01/12/19 04:00 98 01/12/19 04:00 40 01/12/19 04:00 96.0 98 22 89/56 (67) 100 01/12/19 03:00 90 22 107/54 (71) 100 01/12/19 02:39 97 23 40 60 01/12/19 02:00 88 22 118/54 (75) 100 01/12/19 01:00 84 22 111/55 (73) 100 01/12/19 00:57 84 24 40 60 01/12/19 00:00 Mechanical Ventilator 01/12/19 00:00 40 01/12/19 00:00 88 01/12/19 00:00 97.2 87 22 102/51 (68) 100 01/11/19 23:20 89 23 40 60 01/11/19 23:00 87 22 108/52 (70) 100 01/11/19 22:00 88 20 109/58 (75) 100 01/11/19 21:45 86 22 40 60 01/11/19 21:00 90 20 100/48 (65) 100 01/11/19 20:00 40 01/11/19 20:00 93 01/11/19 20:00 93 100/55 (70) 01/11/19 20:00 Mechanical Ventilator 01/11/19 19:53 92 24 40 60 01/11/19 19:30 93 100/48 (65) 01/11/19 19:00 96.4 94 101/52 (68) 01/11/19 18:50 99/51 01/11/19 18:00 94 95/47 (63) 01/11/19 17:00 95 101/52 (68) 01/11/19 16:32 94 22 40 60 01/11/19 16:30 96 106/56 (73) 01/11/19 16:00 98 01/11/19 16:00 101.0 99 108/53 (71) 01/11/19 16:00 Mechanical Ventilator 01/11/19 16:00 40 01/11/19 15:30 98 104/56 (72) Sp02 EP Interpretation: reviewed, normal General Appearance: other - flaccid Eyes: bilateral eye other - unresponsive ENT: moist mucus membranes, other - ET tube with some blood Neck: other - flaccid Respiratory: other - BS bilat Cardiovascular #1: other - pulses only with CPR Cardiovascular #2: 2+ femoral (R) Gastrointestinal: decreased bowel sounds, scaphoid Musculoskeletal: other - flaccid. Post op L forearm Neurologic: other - unresponsive Psychiatric: other - comatose Skin: mottled CPR/Code Blue CPR/Code Blue Narrative Code Blue 1 Start 12:05 Asystole. Epi prior to my arrival. CPR supervised by me. Pulses obtained 12:15 ABG ordered. Patient prognosis = nil. Code Blue 2 Start 14:22 Asystole. Interim blood gas with bicarb of 14. Pulses with CPR only. Patient demonstrated cardiac unresponsiveness and any further attempt at resuscitation would be futile. Code called and patient pronounced at 14:28. Medical Decision Making Diagnostic Impression: Primary Impression: Cardiopulmonary arrest ER Course Patient most for prior code blues. On maximal pressors. Also on bicarb drip. Patient has been unresponsive since prior rests. See code blue notes. Patient pronounced at 14:28. Laboratory Tests Test 01/10/19 19:20 01/10/19 20:00 01/11/19 02:50 01/11/19 09:21 White Blood Count 24.6 K/UL (4.8-10.8) #*H 17.1 K/UL (4.8-10.8) H Red Blood Count 4.80 M/UL (4.70-6.10) 4.14 M/UL (4.70-6.10) L Hemoglobin 13.2 G/DL (14.2-18.0) L 11.7 G/DL (14.2-18.0) L Hematocrit 44.6 % (42.0-52.0) 37.5 % (42.0-52.0) L Mean Corpuscular Volume 93 FL (80-99) 91 FL (80-99) Mean Corpuscular Hemoglobin 27.6 PG (27.0-31.0) 28.3 PG (27.0-31.0) Mean Corpuscular Hemoglobin Concent 29.6 G/DL (32.0-36.0) L 31.2 G/DL (32.0-36.0) L Red Cell Distribution Width 19.1 % (11.6-14.8) H 19.5 % (11.6-14.8) H Platelet Count 75 K/UL (150-450) L 97 K/UL (150-450) L Mean Platelet Volume 6.1 FL (6.5-10.1) L 6.4 FL (6.5-10.1) L Neutrophils (%) (Auto) % (45.0-75.0) % (45.0-75.0) Lymphocytes (%) (Auto) % (20.0-45.0) % (20.0-45.0) Monocytes (%) (Auto) % (1.0-10.0) % (1.0-10.0) Eosinophils (%) (Auto) % (0.0-3.0) % (0.0-3.0) Basophils (%) (Auto) % (0.0-2.0) % (0.0-2.0) Differential Total Cells Counted 100 100 Neutrophils % (Manual) 83 % (45-75) H 91 % (45-75) H Lymphocytes % (Manual) 2 % (20-45) L 5 % (20-45) L Monocytes % (Manual) 4 % (1-10) 4 % (1-10) Eosinophils % (Manual) 0 % (0-3) 0 % (0-3) Basophils % (Manual) 0 % (0-2) 0 % (0-2) Myelocytes % 1 % (0-0) H Band Neutrophils 10 % (0-8) H 0 % (0-8) Nucleated Red Blood Cells 1 /100 WBC Platelet Estimate Decreased L Decreased L Platelet Morphology Normal Normal Hypochromasia 1+ Anisocytosis 2+ 1+ Sodium Level 138 MMOL/L (136-145) Potassium Level 4.1 MMOL/L (3.5-5.1) Chloride Level 105 MMOL/L (98-107) Carbon Dioxide Level 15 MMOL/L (21-32) L Anion Gap 18 mmol/L (5-15) H Blood Urea Nitrogen 28 mg/dL (7-18) H Creatinine 3.8 MG/DL (0.55-1.30) H Estimate Glomerular Filtration Rate 19.5 mL/min (>60) Glucose Level 89 MG/DL (74-106) Calcium Level 8.6 MG/DL (8.5-10.1) Total Bilirubin 0.5 MG/DL (0.2-1.0) Aspartate Amino Transferase (AST) 352 U/L (15-37) H Alanine Aminotransferase (ALT) 147 U/L (12-78) H Alkaline Phosphatase 542 U/L (46-116) H Troponin I 3.099 ng/mL (0.000-0.056) 5.475 ng/mL (0.000-0.056) Total Protein 8.3 G/DL (6.4-8.2) H Albumin 2.0 G/DL (3.4-5.0) L Globulin 6.3 g/dL Albumin/Globulin Ratio 0.3 (1.0-2.7) L Arterial Blood pH 7.349 (7.350-7.450) 7.521 (7.350-7.450) Arterial Blood Partial Pressure CO2 23.6 mmHg (35.0-45.0) *L 23.2 mmHg (35.0-45.0) *L Arterial Blood Partial Pressure O2 149.7 mmHg (75.0-100.0) H 65.7 mmHg (75.0-100.0) L Arterial Blood HCO3 12.7 mmol/L (22.0-26.0) *L 18.6 mmol/L (22.0-26.0) L Arterial Blood Oxygen Saturation 99.2 % (95-100) 95.0 % (95-100) Arterial Blood Base Excess -11 (-2-2) *L -2.7 (-2-2) L Wai Test Positive Positive Phosphorus Level 2.5 MG/DL (2.5-4.9) Magnesium Level 1.7 MG/DL (1.8-2.4) L Thyroid Stimulating Hormone (TSH) 6.547 uiU/mL (0.358-3.740) Test 01/12/19 04:00 01/12/19 09:20 01/12/19 11:48 01/12/19 12:22 White Blood Count 17.6 K/UL (4.8-10.8) H Red Blood Count 3.64 M/UL (4.70-6.10) L Hemoglobin 10.2 G/DL (14.2-18.0) L Hematocrit 32.9 % (42.0-52.0) L Mean Corpuscular Volume 90 FL (80-99) Mean Corpuscular Hemoglobin 27.9 PG (27.0-31.0) Mean Corpuscular Hemoglobin Concent 30.9 G/DL (32.0-36.0) L Red Cell Distribution Width 19.5 % (11.6-14.8) H Platelet Count 88 K/UL (150-450) L Mean Platelet Volume 6.3 FL (6.5-10.1) L Neutrophils (%) (Auto) % (45.0-75.0) Lymphocytes (%) (Auto) % (20.0-45.0) Monocytes (%) (Auto) % (1.0-10.0) Eosinophils (%) (Auto) % (0.0-3.0) Basophils (%) (Auto) % (0.0-2.0) Differential Total Cells Counted 100 Neutrophils % (Manual) 83 % (45-75) H Lymphocytes % (Manual) 9 % (20-45) L Monocytes % (Manual) 6 % (1-10) Eosinophils % (Manual) 0 % (0-3) Basophils % (Manual) 0 % (0-2) Band Neutrophils 2 % (0-8) Platelet Estimate Decreased L Platelet Morphology Normal Hypochromasia 1+ Anisocytosis 1+ Arterial Blood pH 7.408 (7.350-7.450) 7.067 (7.350-7.450) Arterial Blood Partial Pressure CO2 28.7 mmHg (35.0-45.0) L 51.7 mmHg (35.0-45.0) H Arterial Blood Partial Pressure O2 51.0 mmHg (75.0-100.0) L 64.3 mmHg (75.0-100.0) L Arterial Blood HCO3 17.7 mmol/L (22.0-26.0) *L 14.5 mmol/L (22.0-26.0) *L Arterial Blood Oxygen Saturation 94.0 % (95-100) L 81.1 % (95-100) *L Arterial Blood Base Excess -5.4 (-2-2) L -15.5 (-2-2) *L Wai Test Positive Positive Sodium Level 140 MMOL/L (136-145) Potassium Level 3.3 MMOL/L (3.5-5.1) L Chloride Level 101 MMOL/L (98-107) Carbon Dioxide Level 22 MMOL/L (21-32) Anion Gap 17 mmol/L (5-15) H Blood Urea Nitrogen 42 mg/dL (7-18) H Creatinine 5.3 MG/DL (0.55-1.30) H Estimate Glomerular Filtration Rate 13.3 mL/min (>60) Glucose Level 88 MG/DL (74-106) Calcium Level 8.0 MG/DL (8.5-10.1) L Magnesium Level 1.6 MG/DL (1.8-2.4) L Rhythm Strip Diag. Results EP Interpretation: yes Rhythm: no PVC's, no ectopy, other - ST Other Impression Final rhythm = asystole. Asystolic Status: worsened Disposition: Condition: Referrals: Hany Martin MD (PCP) Yuriy Tomas MD Jan 12, 2019 15:32
--- NOTE | 2019-01-12 15:40 | Neurology Progress Note ---
Interim History Interim History ROS Limited/Unobtainable: Yes Interim History Patient this afternoon. Objective Physical Exam Last Vital Signs Date Time Temp Pulse Resp B/P (MAP) Pulse Ox O2 Delivery O2 Flow Rate FiO2 01/12/19 14:21 51/31 01/12/19 13:10 138 22 100 60 01/12/19 12:00 Mechanical Ventilator 01/12/19 06:00 100 01/12/19 04:00 96.0 Laboratory Tests Test 01/12/19 04:00 01/12/19 09:20 01/12/19 11:48 01/12/19 12:22 White Blood Count 17.6 K/UL (4.8-10.8) H Red Blood Count 3.64 M/UL (4.70-6.10) L Hemoglobin 10.2 G/DL (14.2-18.0) L Hematocrit 32.9 % (42.0-52.0) L Mean Corpuscular Volume 90 FL (80-99) Mean Corpuscular Hemoglobin 27.9 PG (27.0-31.0) Mean Corpuscular Hemoglobin Concent 30.9 G/DL (32.0-36.0) L Red Cell Distribution Width 19.5 % (11.6-14.8) H Platelet Count 88 K/UL (150-450) L Mean Platelet Volume 6.3 FL (6.5-10.1) L Neutrophils (%) (Auto) % (45.0-75.0) Lymphocytes (%) (Auto) % (20.0-45.0) Monocytes (%) (Auto) % (1.0-10.0) Eosinophils (%) (Auto) % (0.0-3.0) Basophils (%) (Auto) % (0.0-2.0) Differential Total Cells Counted 100 Neutrophils % (Manual) 83 % (45-75) H Lymphocytes % (Manual) 9 % (20-45) L Monocytes % (Manual) 6 % (1-10) Eosinophils % (Manual) 0 % (0-3) Basophils % (Manual) 0 % (0-2) Band Neutrophils 2 % (0-8) Platelet Estimate Decreased L Platelet Morphology Normal Hypochromasia 1+ Anisocytosis 1+ Arterial Blood pH 7.408 (7.350-7.450) 7.067 (7.350-7.450) Arterial Blood Partial Pressure CO2 28.7 mmHg (35.0-45.0) L 51.7 mmHg (35.0-45.0) H Arterial Blood Partial Pressure O2 51.0 mmHg (75.0-100.0) L 64.3 mmHg (75.0-100.0) L Arterial Blood HCO3 17.7 mmol/L (22.0-26.0) *L 14.5 mmol/L (22.0-26.0) *L Arterial Blood Oxygen Saturation 94.0 % (95-100) L 81.1 % (95-100) *L Arterial Blood Base Excess -5.4 (-2-2) L -15.5 (-2-2) *L Wai Test Positive Positive Sodium Level 140 MMOL/L (136-145) Potassium Level 3.3 MMOL/L (3.5-5.1) L Chloride Level 101 MMOL/L (98-107) Carbon Dioxide Level 22 MMOL/L (21-32) Anion Gap 17 mmol/L (5-15) H Blood Urea Nitrogen 42 mg/dL (7-18) H Creatinine 5.3 MG/DL (0.55-1.30) H Estimat Glomerular Filtration Rate 13.3 mL/min (>60) Glucose Level 88 MG/DL (74-106) Calcium Level 8.0 MG/DL (8.5-10.1) L Magnesium Level 1.6 MG/DL (1.8-2.4) L Impression/Recommendations Status: deteriorating Rebecca Yousif N.P. Jan 12, 2019 15:40
--- NOTE | 2019-01-14 12:34 | Cardiology Report ---
APPROVED REPORT EXAM: Two-dimensional and M-mode echocardiogram with Doppler and color Doppler. INDICATION Arrhythmia M-Mode DIMENSIONS IVSd1.1 (0.7-1.1cm)Left Atrium (MM)3.3 (1.6-4.0cm) LVDd4.8 (3.5-5.6cm)Aortic Root2.6 (2.0-3.7cm) PWd0.9 (0.7-1.1cm)Aortic Cusp Exc.1.8 (1.5-2.0cm) IVSs1.1 cm LVDs3.7 (2.5-4.0cm) PWs1.1 cm Normal left ventricular chamber size, systolic function and wall motion . Left ventricular ejection fraction estimated to be 55-60%. No evidence of left ventricular hypertrophy. No evidence of pericardial effusion. Plueral effusion present . Left atrial size at upper limits of normal. Mild right atrial and ventricular enlargement. Aortic valve calcification with normal cusp excursion . Mildly thickened mitral valve leaflets with normal excursion. Mild mitral annulus and aortic root calcification. Pulmonic valve not well visualized. IVC at normal size with physiological collapse . A color flow and spectral Doppler study was performed and revealed: No aortic insufficiency . Normal left ventricular diastolic function. Trace mitral regurgitation. Mild to moderate tricuspid regurgitation. Tricuspid systolic velocities suggests peak right ventricular systolic pressure of 44mmHg,consistent with moderate pulmonary hypertension . Pulmonic regurgitation present .
--- NOTE | 2019-01-14 19:34 | Cardiology Report ---
APPROVED REPORT EKG Measurement Heart [id number] Normal sinus rhythm T wave abnormality, consider lateral ischemia Prolonged QT Abnormal ECG
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
--- NOTE | 2019-01-15 11:05 | Diagnostic Imaging Report ---
APPROVED REPORT CPT Code: 90103 Present Symptoms Comments: Post Op Asthma Hx of above the knee amputaton RIGHT LEG: Venous imaging reveals a patent deep venous system. There is no evidence of thrombus within the femoral, popliteal or tibial segments. The greater saphenous vein is also within normal limits. Doppler indicates normal spontaneous flow within these segments. LEFT LEG: Venous imaging reveals a patent deep venous system. There is no evidence of thrombus within the common femoral, and superficial femoral veins. The greater saphenous vein is also within normal limits. Doppler indicates normal spontaneous flow within these segments. The popliteal and calf veins were not imaged, due to amputation.
== END 2019-01-12 14:30 | disposition expired | DRG 264 ==
LOC: SUR 07:54 → ICU 14:45 → SDSOVERFLO 14:47 → ICU 14:48
PROC: 0BH17EZ Insertion of Endotracheal Airway into Trachea, Via Natural or Artificial Opening (ICD-10-PCS; principal; 2019-01-10 10:30)
PROC: 5A1945Z Respiratory Ventilation, 24-96 Consecutive Hours (ICD-10-PCS; principal; 2019-01-10 10:30)
PROC: 031809D Bypass Left Brachial Artery to Upper Arm Vein with Autologous Venous Tissue, Open Approach (ICD-10-PCS; principal; 2019-01-10 10:30)
DX: I97.121 Postprocedural cardiac arrest following other surgery (principal); N18.6 End stage renal disease; I21.4 Non-ST elevation (NSTEMI) myocardial infarction; J96.00 Acute respiratory failure, unspecified whether with hypoxia or hypercapnia; R40.20 Unspecified coma; J15.5 Pneumonia due to Escherichia coli; J15.6 Pneumonia due to other Gram-negative bacteria; A41.9 Sepsis, unspecified organism; I12.0 Hypertensive chronic kidney disease with stage 5 chronic kidney disease or end stage renal disease; I48.92 Unspecified atrial flutter; R57.9 Shock, unspecified; B49 Unspecified mycosis; C84.09 Mycosis fungoides, extranodal and solid organ sites; G93.40 Encephalopathy, unspecified; E11.22 Type 2 diabetes mellitus with diabetic chronic kidney disease; Y83.8 Other surgical procedures as the cause of abnormal reaction of the patient, or of later complication, without mention of misadventure at the time of the procedure; Z99.2 Dependence on renal dialysis; D63.1 Anemia in chronic kidney disease; K74.60 Unspecified cirrhosis of liver; D69.6 Thrombocytopenia, unspecified; R13.10 Dysphagia, unspecified; T14.90XS Injury, unspecified, sequela; S88.112S Complete traumatic amputation at level between knee and ankle, left lower leg, sequela; V29.9XXS Motorcycle rider (driver) (passenger) injured in unspecified traffic accident, sequela; I48.91 Unspecified atrial fibrillation; E03.9 Hypothyroidism, unspecified; B37.9 Candidiasis, unspecified; Z16.12 Extended spectrum beta lactamase (ESBL) resistance; R00.1 Bradycardia, unspecified
CPT/HCPCS: 36415; 36600; 71045; 74018; 80048; 80053; 82803; 82962; 83735; 84100; 84443; 84484; 85007; 85025; 85610; 85730; 87040; 87070; 87081; 87181; 87205; 92950; 93005; 93306; 93922; 93970; 94002; 94003; 94150; 94664; J0171; J1815; J2250; J2405; J3490